=== PATIENT | female | born 1955 | race Caucasian/White ===

== ENCOUNTER 2016-11-11 04:54 | Inpatient (IN) ==
[2016-11-11] MEDS ORDERED: methylPREDNISolone 125 MG/2 ML VIAL IVP ONE (04:56)
[2016-11-11] MEDS ORDERED: Ipratropium/Albuterol Neb 3 ML IH ONE ×3 (04:57→11:52)
[2016-11-11] MEDS ORDERED: Albuterol 2.5 MG/3 ML NEBULIZER IH ONE (06:00)
--- NOTE | 2016-11-11 06:29 | Emergency Department Note ---
Disposition Clinical Impression: Acute exacerbation of chronic obstructive airways disease, Hypoxia, Shortness of breath Disposition: Still a Patient Condition: Fair Referrals: NO,PCP [Non-Partnered Physician] - Forms: ED Satisfaction Letter Time of Disposition: 06:41 SOB HPI - General Chief Complaint: ED Shortness of Breath/Dyspnea Stated Complaint: KRISHNA Source: patient Limitations: no limitations Nursing Notes Reviewed: Yes Vital Signs Reviewed: Yes - History of Present Illness Patient presents emergency room from home today for evaluation of shortness of breath. Symptoms progressively getting worse over the last 2-3 days. She has known COPD and emphysema. She is trying to use her home inhalers and oxygen. She has not had any control over symptoms that time. She presents here today by EMS significantly dyspneic and has audible wheezing. She is denying chest pain she just has uncontrolled shortness of breath and is asking for our help. Pt Subjective Complaint: shortness of breath Onset (ago): day(s) (3 days) Context: smoke/fume exposure Severity: moderate Consistency/Duration: gradually worsening Improves with: nothing Worsens with: lying flat, exertion, inspiration Associated symptoms: Reports: cough, wheezing, sputum production, orthopnea ( she will sleep) Treatment prior to arrival: oxygen, bronchodilator - Related Data Home oxygen amount: 2 liters Home Medications Medication Instructions Recorded Confirmed Acetylcysteine [Nac] 500 mg PO DAILY 10/23/16 10/23/16 Albuterol Sulfate [Albuterol 2 puff IH Q4H PRN 10/23/16 10/23/16 Inhaler] Aspirin [Lo-Dose Aspirin EC] 81 mg PO DAILY 10/23/16 10/23/16 Cholecalciferol (Vitamin D3) 1,000 unit PO DAILY 10/23/16 10/23/16 [Vitamin D3] Citalopram Hydrobromide [Celexa] 20 mg PO DAILY 10/23/16 10/23/16 CloNIDine HCl [Kapvay] 0.1 mg PO Q12H PRN 10/23/16 10/23/16 Doxazosin [Cardura] 4 mg PO HS 10/23/16 10/23/16 Fluticasone/Salmeterol [Advair 1 puff IH DAILY 10/23/16 10/23/16 250-50 Diskus] Hydrochlorothiazide 25 mg PO DAILY 10/23/16 10/23/16 Ipratropium/Albuterol Neb [Duoneb] 3 ml IH Q4HR PRN 10/23/16 10/23/16 Labetalol HCl 200 mg PO BID 10/23/16 10/23/16 Potassium Chloride [Klor-Con 10 meq PO DAILY 10/23/16 10/23/16 Sprinkle] Previous Rx's Medication Instructions Recorded Acetaminophen [Tylenol] 1,000 mg PO Q6HR PRN #90 tablet 10/23/16 Allergies Allergy/AdvReac Type Severity Reaction Status Date / Time sulfamethoxazole AdvReac Nausea Verified 10/05/15 11:08 [From Bactrim] trimethoprim [From Bactrim] AdvReac Nausea Verified 10/05/15 11:08 All systems ED: reviewed and negative except as stated. Constitutional: Denies: fever, chills Cardiovascular: Reports: dyspnea on exertion, orthopnea. Denies: chest pain, palpitations, edema Respiratory: Reports: cough, dyspnea, wheezes Gastrointestinal: Denies: nausea, vomiting, diarrhea Genitourinary: Denies: dysuria, frequency Musculoskeletal: Denies: back pain, neck pain Integumentary: Denies: rash Neurological: Denies: headache Past Medical History - Past Medical History Attestation: Yes The following information was validated with the patient. Source: patient Medical history: Reports: COPD, GERD, hyperlipidemia, hypertension Surgical history: Reports: appendectomy, cholecystectomy Psychiatric history: Reports: no psych history CHIEF RESOURCE OFFICER history: Reports: no CHIEF RESOURCE OFFICER history - Social History Smoking Status: Current every day smoker Smokeless Tobacco Status: No Alcohol use: Reports: unknown Drug use: Reports: none Physical Exam - General Limitations: no limitations General appearance: alert - Neck Neck exam: Present: normal inspection, full ROM, trachea midline. Absent: tenderness, meningismus, lymphadenopathy - Chest Chest inspection: Present: normal inspection, symmetric chest wall rise. Absent : tenderness - Respiratory Respiratory exam: Present: respiratory distress, wheezes, accessory muscle use. Absent: stridor - Cardiovascular Cardiovascular exam: Present: normal rhythm, tachycardia, normal heart sounds - Abdominal Exam Abdominal exam: Present: soft, Non-Tender, normal bowel sounds. Absent: tenderness, distention, guarding, rebound, rigidity, Campos's sign, Rovsing's sign, tenderness at McBurney's Point - Extremities Exam Extremities exam: Present: normal inspection, full ROM. Absent: tenderness - Back Exam Back exam: Present: normal inspection, full ROM. Absent: tenderness - Neurological Exam Neurological exam: Present: alert, oriented X3, CN II-XII intact, normal gait - Psychiatric Psychiatric exam: Present: normal affect, normal mood - Skin Skin exam: Present: warm, dry, intact, normal color Course Course Narrative: patient seen and examined the time of arrival. See history of present illness vital signs reviewed on presentation patient is afebrile but significantly tachycardic to Hypoxic. She presented by EMS today for evaluation of shortness of breath and COPD exacerbation. She has felt this coming on over several days at home. She has not had any cough or congestion but she does feel generally ill. Head is atraumatic pupils are reactive to light. Trachea is midline. No stridor. Lungs have diffuse wheezing and significant increased work of breathing and excessive muscle use. Heart is tachycardic but regular. Abdomen is soft no pulsatile mass. Patient moves her extremities but she is generally weak on presentation. Patient is concerning for possible respiratory decompensation secondary to her work of breathing and the prolonged time frame that she has been doing this. Patient was immediately placed on BiPAP and had 3 duo nebs ordered. Basic EKG chest x-ray labs including blood cultures influenza swab and troponin were ordered at this point. Patient has had first dose of IV steroids given. Patient is very concerning for decompensation in the emergency room. We will be watching her closely to see how her symptoms control. Her heart rate was 140 on presentation. We will continue to monitor until disposition is determined. Patient will most likely require admission to the hospital for definitive management - Reevaluation(s) Reevaluation #1: Patient is doing well now with her breathing. Symptoms are getting better. She is still to Her pulse ox is stable at this time. Patient is going to be provided with another 3 albuterol nebulizer treatments. Chest x-ray is still pending. Labs are still pending. IV access is been obtained. Steroids to be given. Patient will have admission passes completed. She will be signed out to the daytime physicians Dr. RUTLEDGE. They will complete the patient's medical evaluation and treatment course. Admission passes completed by then. To the patient's presentation symptoms medical intervention were discussed prior to the signout Pat Time: 07:00 Vital Signs Temperature 98.6 F 02/13/17 04:58 Pulse Rate 139 11/11/16 04:58 Respiratory Rate 30 11/11/16 04:58 Blood Pressure 114/96 11/11/16 04:58 O2 Sat by Pulse Oximetry 98 11/11/16 04:58 Temperature 98.6 F 11/11/16 04:58 Pulse Rate 139 11/11/16 04:58 Respiratory Rate 30 11/11/16 06:10 Blood Pressure 191/141 11/11/16 06:10 O2 Sat by Pulse Oximetry 96 11/11/16 06:10 Oxygen Delivery Oxygen Delivery Aerosol Mask Shortness of Breath/Dyspnea - MDM Narrative Medical decision making narrative: COPD, shortness of breath, hypoxia - Medical Records Medical records reviewed: Yes I reviewed the patient's medical records. - Lab Data Result diagrams: 11/11/16 06:24 11/11/16 06:25 - EKG Data EKG attestation: Yes I reviewed and interpreted this EKG. EKG shows normal: Reports: sinus rhythm, axis, intervals, QRS complexes, ST-T waves Rate: Reports: tachycardia Rhythm: Reports: NSR Standish/QRS: Reports: normal Interpretation: Reports: other (Tachycardic but otherwise morphology appears to be stable) Attestation Statement - Attestation Attestation: For this encounter, I have reviewed the resident, MEDIA PRODUCER, or PA documentation, treatment plan, and medical decision making; and I have had face to face time with this patient. 60-year-old female brought in by EMS with respiratory distress. Patient was unable to provide an adequate history due to her respiratory distress. Patient states that her breathing has significantly worsened over the past 2-3 days. This feels similar to her previous COPD exacerbations however this is much worse. Patient denies recent fevers. Patient states she is nauseated and has vomited at home. Patient denies diarrhea, abdominal pain. On initial physical exam the patient has significant wheezing in the bilateral posterior lung tang. She is extremely diaphoretic and has a heart rate of 140. Patient was given DuoNeb 3 and placed on BiPAP after initial evaluation. Patient started to improve after breathing treatments and BiPAP. She was given Solu-Medrol emergency department. Labs are pending at the time of the end of shift. The patient's care will be transferred to Dr. Rutledge pending laboratory evaluation and disposition.
[2016-11-11 06:32] LABS: Basophils # 0.1 K/mcL (0.0-0.2); Basophils % 0.5 %; Eosinophils % 0.1 %; Hemoglobin 15.2 g/dL (11.5-15.4); Immature Granulocytes % 0.8 % (0-4); Lymphocytes # 0.8 K/mcL (0.6-4.6); Lymphocytes % 7.5 %; Mean Corpuscular Hemoglobin 30.1 pg (28.0-33.3); Mean Corpuscular Volume 91.1 fL (83.0-100.0); Mean Platelet Volume 9.5 fL (9.4-12.4); Monocytes # 0.6 K/mcL (0.0-1.3); Monocytes % 5.6 %; Neutrophils # 9.3 K/mcL (1.6-8.9); Platelet Count 262 K/mcL (140-400); Red Blood Count 5.05 M/mcL (3.82-4.97); Red Cell Distribution Width 12.3 % (11.5-14.5); Segmented Neutrophils % 85.5 %
[2016-11-11 06:46] LABS: BUN/Creatinine Ratio 16 (6-26); Blood Urea Nitrogen 18 mg/dL (7-20); Calcium 10.7 mg/dL (8.6-10.8); Carbon Dioxide 24 mEq/L (19-29); Chloride 102 mEq/L (98-109); Glucose 155 mg/dL (70-99); Osmolality,Calculated 291 (280-300); Potassium 4.6 mEq/L (3.5-4.5); Sodium 138 mEq/L (136-145); eGFR For African Americans > 60 (> 60); eGFR For Non-African Americans 50 (> 60)
[2016-11-11] MEDS ORDERED: Aspirin 81 MG TAB.CHEW PO ONE (07:11)
[2016-11-11] MEDS ORDERED: 0.9 % Sodium Chloride 500 ML IV ONE (07:36)
--- NOTE | 2016-11-11 07:54 | Emergency Department Note ---
Disposition Clinical Impression: Acute exacerbation of chronic obstructive airways disease, Hypoxia, Shortness of breath, Elevated troponin Disposition: Admitted As Inpatient Condition: Fair Referrals: NO,PCP [Non-Partnered Physician] - Forms: ED Satisfaction Letter General Adult HPI - General Chief complaint: ED Shortness of Breath/Dyspnea Stated complaint: KRISHNA Source: patient Limitations: no limitations - History of Present Illness Pain Scale: 0 - Related Data Home Medications Medication Instructions Recorded Confirmed Acetylcysteine [Nac] 500 mg PO DAILY 10/23/16 10/23/16 Albuterol Sulfate [Albuterol 2 puff IH Q4H PRN 10/23/16 10/23/16 Inhaler] Aspirin [Lo-Dose Aspirin EC] 81 mg PO DAILY 10/23/16 10/23/16 Cholecalciferol (Vitamin D3) 1,000 unit PO DAILY 10/23/16 10/23/16 [Vitamin D3] Citalopram Hydrobromide [Celexa] 20 mg PO DAILY 10/23/16 10/23/16 CloNIDine HCl [Kapvay] 0.1 mg PO Q12H PRN 10/23/16 10/23/16 Doxazosin [Cardura] 4 mg PO HS 10/23/16 10/23/16 Fluticasone/Salmeterol [Advair 1 puff IH DAILY 10/23/16 10/23/16 250-50 Diskus] Hydrochlorothiazide 25 mg PO DAILY 10/23/16 10/23/16 Ipratropium/Albuterol Neb [Duoneb] 3 ml IH Q4HR PRN 10/23/16 10/23/16 Labetalol HCl 200 mg PO BID 10/23/16 10/23/16 Potassium Chloride [Klor-Con 10 meq PO DAILY 10/23/16 10/23/16 Sprinkle] Previous Rx's Medication Instructions Recorded Acetaminophen [Tylenol] 1,000 mg PO Q6HR PRN #90 tablet 10/23/16 Allergies Allergy/AdvReac Type Severity Reaction Status Date / Time sulfamethoxazole AdvReac Nausea Verified 10/05/15 11:08 [From Bactrim] trimethoprim [From Bactrim] AdvReac Nausea Verified 10/05/15 11:08 Constitutional: Denies: fever, chills Cardiovascular: Reports: dyspnea on exertion, orthopnea. Denies: chest pain, palpitations, edema Respiratory: Reports: cough, dyspnea, wheezes Gastrointestinal: Denies: nausea, vomiting, diarrhea Genitourinary: Denies: dysuria, frequency Musculoskeletal: Denies: back pain, neck pain Integumentary: Denies: rash Neurological: Denies: headache Past Medical History - Past Medical History Medical history: Reports: COPD, GERD, hyperlipidemia, hypertension Surgical history: Reports: appendectomy, cholecystectomy Psychiatric history: Reports: no psych history INFORMATION SYSTEMS CONSULTANT history: Reports: no INFORMATION SYSTEMS CONSULTANT history - Social History Smoking Status: Current every day smoker Smokeless Tobacco Status: No Alcohol use: Reports: unknown Drug use: Reports: none Physical Exam - General Limitations: no limitations General appearance: alert Course - Reevaluation(s) Reevaluation #1: Patient taken over from the night team. Patient presents with diffuse wheezing and history of COPD with intermittent home oxygen use. Patient has history of peripheral artery disease and recently underwent cardiac stress test on November 05 in order for preop clearance for left leg angioplasty, which was negative for ischemia or infarct. Patient does have an elevated troponin of 0.9 and has been given aspirin. Will discuss with hospitalist about need for anticoagulation. Patient currently with heart rate of 113, blood pressure 159/100, pulse ox 98% on FiO2 of 40, patient was taken off her BiPAP in order to further discuss history and does continue to speak with pursed lips in short sentences. Patient placed back on BiPAP. Reevaluation #2: Repeat EKG, ABG and troponin drawn at hospitalist request. - Consultations Consultation #1: Discussed with hospitalist. Pt accepted. Dr. Malloy will evaluate at bedside. Vital Signs Temperature 98.6 F 11/11/16 04:58 Pulse Rate 139 11/11/16 04:58 Respiratory Rate 30 11/11/16 04:58 Blood Pressure 114/96 11/11/16 04:58 O2 Sat by Pulse Oximetry 98 11/11/16 04:58 Temperature 98.6 F 11/11/16 04:58 Pulse Rate 124 11/11/16 07:30 Respiratory Rate 22 11/11/16 07:30 Blood Pressure 195/119 11/11/16 07:30 O2 Sat by Pulse Oximetry 95 11/11/16 07:30 Oxygen Delivery Oxygen Delivery Aerosol Mask Medical Decision Making - Medical Records Medical records reviewed: Yes I reviewed the patient's medical records. - Lab Data Lab results reviewed: Yes I reviewed the patient's lab results. Result diagrams: 11/11/16 06:24 11/11/16 06:25 Lab Results 11/11/16 11/11/16 11/11/16 Range/Units 06:00 06:24 06:24 WBC 10.9 (4.3-11.1) K/mcL RBC 5.05 H (3.82-4.97) M/mcL Hgb 15.2 (11.5-15.4) g/dL Hct 46.0 H (35.3-44.9) % MCV 91.1 (83.0-100.0) fL MCH 30.1 (28.0-33.3) pg MCHC 33.0 (31.6-35.5) g/dL RDW 12.3 (11.5-14.5) % Plt Count 262 (140-400) K/mcL MPV 9.5 (9.4-12.4) fL Immature Gran % 0.8 (0-4) % Seg Neutrophils % 85.5 % Lymphocytes % 7.5 % Monocytes % 5.6 % Eosinophils % 0.1 % Basophils % 0.5 % Neutrophils # 9.3 H (1.6-8.9) K/mcL Lymphocytes # 0.8 (0.6-4.6) K/mcL Monocytes # 0.6 (0.0-1.3) K/mcL Eosinophils # 0.0 (0.0-0.6) K/mcL Basophils # 0.1 (0.0-0.2) K/mcL Sodium (136-145) mEq/L Potassium (3.5-4.5) mEq/L Chloride (98-109) mEq/L Carbon Dioxide (19-29) mEq/L BUN (7-20) mg/dL Creatinine (0.57-1.11) mg/dL Est GFR ( Amer) (> 60) Est GFR (Non-Af Amer) (> 60) BUN/Creatinine Ratio (6-26) Glucose (70-99) mg/dL Calculated Osmolality (280-300) Calcium (8.6-10.8) mg/dL Troponin I 0.91 H* (0-0.03) ng/mL B-Natriuretic Peptide (0-100) pg/mL Specimen Rejected Clotted 11/11/16 11/11/16 Range/Units 06:24 06:25 WBC (4.3-11.1) K/mcL RBC (3.82-4.97) M/mcL Hgb (11.5-15.4) g/dL Hct (35.3-44.9) % MCV (83.0-100.0) fL MCH (28.0-33.3) pg MCHC (31.6-35.5) g/dL RDW (11.5-14.5) % Plt Count (140-400) K/mcL MPV (9.4-12.4) fL Immature Gran % (0-4) % Seg Neutrophils % % Lymphocytes % % Monocytes % % Eosinophils % % Basophils % % Neutrophils # (1.6-8.9) K/mcL Lymphocytes # (0.6-4.6) K/mcL Monocytes # (0.0-1.3) K/mcL Eosinophils # (0.0-0.6) K/mcL Basophils # (0.0-0.2) K/mcL Sodium 138 (136-145) mEq/L Potassium 4.6 H (3.5-4.5) mEq/L Chloride 102 (98-109) mEq/L Carbon Dioxide 24 (19-29) mEq/L BUN 18 (7-20) mg/dL Creatinine 1.11 (0.57-1.11) mg/dL Est GFR ( Amer) > 60 (> 60) Est GFR (Non-Af Amer) 50 L (> 60) BUN/Creatinine Ratio 16 (6-26) Glucose 155 H (70-99) mg/dL Calculated Osmolality 291 (280-300) Calcium 10.7 (8.6-10.8) mg/dL Troponin I (0-0.03) ng/mL B-Natriuretic Peptide 459 H (0-100) pg/mL Specimen Rejected - Radiology Data Radiology results reviewed: Yes I reviewed the patient's radiology results. - EKG Data EKG #2 EKG attestation: Yes I reviewed and interpreted this EKG. EKG results narrative: Repeat EKG shows sinus tachycardia with ventricular rate of 110 bpm. CA 148. QRS 75. QTC 380. Patient has no significant ST elevations or depressions. No significant changes from previous EKG approximately 3 hours prior.
[2016-11-11] MEDS ORDERED: *HR* Heparin 5,000 UNIT/ML VIAL IVP PRN (08:33)
[2016-11-11] MEDS ORDERED: *HR* Heparin 5,000 UNIT/ML VIAL IVP ONE (08:33)
[2016-11-11 08:36] LABS: ABG Base Excess -0.2 mEq/L (-2.0 to 3.0); ABG HCO3 26.4 mEQ/L (21-27); ABG Oxygen Saturation 99 % (95-98); ABG PCO2 49 mmHg (35-45); ABG PH 7.34 pH Units (7.32-7.45); ABG PO2 132 mmHg (85-104); ABG TCO2 27.9 mEq/L (20-26)
[2016-11-11 08:38] LABS: Blood Gas FiO2 40 %
[2016-11-11] MEDS: *HR* Metoprolol 5 MG/5 ML VIAL IVP SCH ×3 (09:07→20:21)
[2016-11-11 09:23] LABS: Hematocrit 46.2 % (35.3-44.9); Hemoglobin 15.3 g/dL (11.5-15.4); Mean Corpuscular HGB Conc 33.1 g/dL (31.6-35.5); Mean Corpuscular Hemoglobin 30.4 pg (28.0-33.3); Mean Corpuscular Volume 91.7 fL (83.0-100.0); Mean Platelet Volume 9.6 fL (9.4-12.4); Platelet Count 266 K/mcL (140-400); Red Blood Count 5.04 M/mcL (3.82-4.97); Red Cell Distribution Width 12.4 % (11.5-14.5)
[2016-11-11 09:30] LABS: INR 0.9; Prothrombin Time 10.1 Seconds (9.4-12.1)
[2016-11-11 09:33] LABS: Activated Partial Thrombo Time 28.3 Seconds (26.0-36.0)
--- NOTE | 2016-11-11 10:15 | Internal Med History&Physical ---
Date of Encounter: 11/11/16 Time of Encounter: 10:12 Assessment and Plan (1) Non-ST elevation myocardial infarction (NSTEMI), initial care episode Current visit: Yes Status: Acute I have discussed the case with cardiology. She A she was given aspirin. We will start heparin drip. We will start IV metoprolol. We will keep her nothing by mouth. I have repeated troponin stat and noticed an upper trend.. Currently her troponin is 1.3 from 0.9. Check echocardiogram. The patient has a recent stress test which was negative however it appears that at this time she is developing ACS. We will use oxygen by nasal cannula and morphine as needed for pain. Notably the patient does not report any chest pain at this time and has not had chest pain for the last 3 days however she does complain of diaphoresis and weakness. I have repeated her EKG which just appears stable from her previous EKG done today. I do not see any ST elevations. There are Q waves and nonspecific ST changes. (2) Acute respiratory failure with hypoxia and hypercarbia Current visit: Yes Status: Acute Patient is currently on BiPAP. I have performed an ABG which shows mild heart hypercarbia. She has been hypoxic and in respiratory distress with tachypnea and accessory muscle use however this improved with BiPAP. We will continue with BiPAP with settings of 16/840% FiO2, we will treat her COPD exacerbation and attempt BiPAP breaks for ice chips. The patient is highly unstable and there is high probability of emergent and significant clinical decompensation with potential impairment of organ function including cardiovascular system and respiratory system. I have performed 45 minutes of critical care time which involved decision making of high complexity to assess, manipulate, and support vital organ system, in order to prevent further life threatening deterioration of the patient's condition. The time involved in the performance of any procedures was not counted toward critical care time and will be billed separately. Critical care time was spent evaluating the patient, reviewing EKGs, telemetry tracing, imaging studies and laboratory data, discussing the case with the emergency department physicians, and consultants, ordering medications and reevaluating for clinical response and making adjustments to ordered medications. (3) Tobacco abuse Current visit: Yes Status: Acute I have advised smoking cessation. Will provide nicotine replacement therapy (4) Uncontrolled hypertension Current visit: Yes Status: Acute IV metoprolol. Restart her home meds. I will specifically continue her clonidine while she is nothing by mouth. (5) Depression Current visit: Yes Status: Acute Hold Celexa due to possible intervention with Levaquin. Qualifiers: Depression Type: other depression Qualified Code(s): F32.89 - Other specified depressive episodes (6) Acute exacerbation of chronic obstructive airways disease Current visit: Yes Status: Acute IV Solu-Medrol. Inhaled albuterol and ipratropium. Continue with BiPAP. IV Levaquin as indicated by increased sputum production and need for noninvasive positive pressure ventilation. Internal Medicine - H&P: HPI Chief complaint: Respiratory distress Plans for Post Hospital Care: Home History of present illness: Ms. Crawford is a 60 year old female with past medical history significant for COPD who was brought by ambulance for evaluation of respiratory distress. The history is limited by severe shortness of breath currently the patient is on BiPAP. She relates that for the last 3 days she had worsening shortness of breath not associated with chest pain. She reports associated cough productive of yellow sputum and subjective fevers. The course has been progressively worsening in her shortness of breath but not significantly improved with use of nebulized albuterol. Upon initial evaluation in the emergency department she was found to be in respiratory distress and she was placed on BiPAP. She was given inhaled bronchodilators and Solu-Medrol. Review of systems Limited respiratory distress. A limited 10 point review of systems was performed and was positive for leg claudication, chronic shortness of breath improved with the use of home oxygen, nausea and diaphoresis, otherwise negative Family history was positive for premature coronary artery disease in the patient 's father, otherwise noncontributory. Past Med Surg Social Fam HX - Past Medical History Medical history: COPD, GERD, hyperlipidemia, hypertension Psychiatric history: no psych history - Past Surgical History Surgical History: appendectomy, cholecystectomy - Social History Smoking Status: Current every day smoker Smokeless Tobacco Status: No Alcohol use: unknown Drug use: none - Family History Father Adopted: No Family Member Ethnicity: Non- Living Status: Hx Family Cardiac Disorders: Yes Hx Family Respiratory Disorders: No Hx Family Cancer: No Hx Family GI Disorders: No Hx Family Endocrine Disorder: No Hx Family Neuromuscular Disorders: No Hx Family Neurologic Disorders: Yes (gopila cva's) Hx Family HEENT Disorders: No Hx Family Autoimmune Disorders: No Internal Medicine - H&P: Meds Acetaminophen [Tylenol] 1,000 mg PO Q6HR PRN #90 tablet 10/23/16 [Rx] Acetylcysteine [Nac] 500 mg PO DAILY 10/23/16 [History] Albuterol Sulfate [Albuterol Inhaler] 2 puff IH Q4H PRN 10/23/16 [History] Aspirin [Lo-Dose Aspirin EC] 81 mg PO DAILY 10/23/16 [History] Cholecalciferol (Vitamin D3) [Vitamin D3] 1,000 unit PO DAILY 10/23/16 [History] Citalopram Hydrobromide [Celexa] 20 mg PO DAILY 10/23/16 [History] CloNIDine HCl [Kapvay] 0.1 mg PO Q12H PRN 10/23/16 [History] Doxazosin [Cardura] 4 mg PO HS 10/23/16 [History] Fluticasone/Salmeterol [Advair 250-50 Diskus] 1 puff IH DAILY 10/23/16 [History] Hydrochlorothiazide 25 mg PO DAILY 10/23/16 [History] Ipratropium/Albuterol Neb [Duoneb] 3 ml IH Q4HR PRN 10/23/16 [History] Labetalol HCl 200 mg PO BID 10/23/16 [History] Potassium Chloride [Klor-Con Sprinkle] 10 meq PO DAILY 10/23/16 [History] Allergies sulfamethoxazole [From Bactrim] Adverse Reaction (Verified 10/05/15 11:08) Nausea trimethoprim [From Bactrim] Adverse Reaction (Verified 10/05/15 11:08) Nausea All Systems PM: A 10-system review of systems was performed and is negative for pertinent findings except as documented above in the HPI. - Constitutional Vitals: Temp Pulse Resp BP Pulse Ox 98.6 F 87 16 135/103 100 11/11/16 04:58 11/11/16 09:44 11/11/16 09:44 11/11/16 09:44 11/11/16 09:44 General appearance: Present: A&O X 3 Exam: She is in moderate to severe distress due to respiratory insufficiency. - Head Head exam: Present: atraumatic, normocephalic - Eye Eye exam: Present: PERRL, conjuntiva pink, sclera anicteric Pupils: Present: PERRL - Neck Neck exam general surgery: Present: supple, trachea midline. Absent: lymphadenopathy - Respiratory Respiratory exam: Present: wheezes, tachypnea. Absent: accessory muscle use, rales, rhonchi Additional comments: Bilateral expiratory wheezes - Cardiovascular Cardiovascular exam: Present: +S1, +S2, tachycardia. Absent: diastolic murmur, gallop, rubs, systolic murmur - GI/Abdominal GI/Abdominal exam: Present: normal bowel sounds, soft, no peritoneal signs. Absent: distended, tenderness - Extremities Exam Extremities exam: Present: warm, radial pulses palpable and symetrical. Absent : calf tenderness, cyanotic, pedal edema - Neurological Exam Neurological exam: Present: CN II-XII intact, oriented X3, no focal deficits. Absent: pronater drift, facial droop, speech deficit - Skin Skin exam: Present: dry, intact Internal Med - H&P Results - Labs CBC & Chem 7: 11/11/16 09:08 11/11/16 06:25 Labs: Short CBC 11/11/16 Range/Units 09:08 WBC 11.3 H (4.3-11.1) K/mcL Hgb 15.3 (11.5-15.4) g/dL Hct 46.2 H (35.3-44.9) % Plt Count 266 (140-400) K/mcL - EKG Data EKG comments: 11/11/16 10:18 My review of the EKG: Sinus tachycardia 1 37 bpm normal intervals Q waves in V1 to V3 indicative of possible old versus subacute MD. ST depressions in V4 and V6. - Impressions Chest x-ray per my review shows normal heart size, clear lung tang no infiltrate effusion or vascular congestion.
[2016-11-11] MEDS ORDERED: Naloxone 0.4 MG/ML INJ IVP PRN (10:33)
[2016-11-11] MEDS ORDERED: *HR* Morphine 2 MG/ML SYRINGE IVP PRN (10:33)
[2016-11-11] MEDS ORDERED: Acetaminophen 325 MG TABLET PO PRN (10:33)
[2016-11-11] MEDS: Aspirin Enteric Coated 81 MG Tablet PO SCH (10:39)
[2016-11-11] MEDS: Heparin 25,000 UNIT/500 ML D5W 25,000 UNIT/500 ML MLS IVC SCH (10:40)
[2016-11-11] MEDS: Levofloxacin 750 MG/150 ML 750 MG/150 ML BAG IVPB SCH (10:41)
--- NOTE | 2016-11-11 11:22 | Cardiology Consult Note ---
<Buddy Rosenthal - Last Filed: 11/11/16 11:19> Date of Encounter: 11/11/16 Time of Encounter: 11:19 Assessment and Plan (1) Non-ST elevation myocardial infarction (NSTEMI), initial care episode Current Visit: Yes Status: Acute Troponin 0.91, 1.30 in setting of acute on chronic respiratory failure-- currently on BiPAP. NSTEMI vs. demand ischemia, but troponin elevation is out of proportion to what would be expected for demand ischemia. She describes pleuritic chest pain in recent days. Multiple risk factors for CAD--HTN, HLD, tobacco abuse, family history, PVD. Negative stress test 11/05/16. Given her troponin elevation and risk factors, recommend LHC during hospital stay once stable from a respiratory standpoint, as pt is on BiPAP and still on distress. Continue heparin gtt and ASA. Start Statin. Will not start BB given respiratory status. Check echo. Continue to follow. (2) Acute respiratory failure with hypoxia and hypercarbia Current Visit: Yes Status: Acute Patient is currently on BiPAP. Management per primary team. (3) Tobacco abuse Current Visit: Yes Status: Acute Smoking cessation counseling given. (4) Uncontrolled hypertension Current Visit: Yes Status: Acute Hospitalist has made adjustments. Continue to monitor and adjust as necessary. Discussion w patient/family: The assessment and plan as outlined above was discussed with the patient and/or family members who expressed understanding and agreement. All questions were answered. Thank you for involving us in the care of your patient. Please call with any questions. I will discuss all the above with Dr. Alexandra and make changes as necessary. History of Present Illness Consult date: 11/11/16 Requesting physician: Mahamed Richard Consult reason: NSTEMI Chief complaint: dyspnea History of present illness: Ms. Crawford is a 60 year old female with a history of hypertension, hyperlipidemia , COPD and tobacco abuse. She has a longstanding history of peripheral vascular disease with claudication. She has undergone multiple vascular procedures in the past for peripheral vascular disease and an abdominal aortic aneurysm. She also has a right renal artery stent for renal artery stenosis. Pt is currently in respiratory distress on BiPAP, so the information I was able to obtain was limited. She developed worsening shortness of breath 2-3 days ago. She does admit to chest pain under left breast that was worse with cough/inspiration. No prior LHC. Had a negative stress test 11/05/16 for pre-op for vascular procedure. Troponins 0.91, 1.30. Heparin gtt already started. Past Med Surg Social Fam HX - Past Medical History Medical history: COPD, GERD, hyperlipidemia, hypertension, peripheral artery disease Psychiatric history: no psych history - Past Surgical History Surgical History: appendectomy, cholecystectomy - Social History Smoking Status: Current every day smoker Smokeless Tobacco Status: No Alcohol use: unknown Drug use: none - Family History Father Adopted: No Family Member Ethnicity: Non- Living Status: Hx Family Cardiac Disorders: Yes Hx Family Respiratory Disorders: No Hx Family Cancer: No Hx Family GI Disorders: No Hx Family Endocrine Disorder: No Hx Family Neuromuscular Disorders: No Hx Family Neurologic Disorders: Yes ([facility]) Hx Family HEENT Disorders: No Hx Family Autoimmune Disorders: No Medications and Allergies Acetaminophen [Tylenol] 1,000 mg PO Q6HR PRN #90 tablet 10/23/16 [Rx] Acetylcysteine [Nac] 500 mg PO DAILY 10/23/16 [History] Albuterol Sulfate [Albuterol Inhaler] 2 puff IH Q4H PRN 10/23/16 [History] Aspirin [Lo-Dose Aspirin EC] 81 mg PO DAILY 10/23/16 [History] Cholecalciferol (Vitamin D3) [Vitamin D3] 1,000 unit PO DAILY 10/23/16 [History] Citalopram Hydrobromide [Celexa] 20 mg PO DAILY 10/23/16 [History] CloNIDine HCl [Kapvay] 0.1 mg PO Q12H PRN 10/23/16 [History] Doxazosin [Cardura] 4 mg PO HS 10/23/16 [History] Fluticasone/Salmeterol [Advair 250-50 Diskus] 1 puff IH DAILY 10/23/16 [History] Hydrochlorothiazide 25 mg PO DAILY 10/23/16 [History] Ipratropium/Albuterol Neb [Duoneb] 3 ml IH Q4HR PRN 10/23/16 [History] Labetalol HCl 200 mg PO BID 10/23/16 [History] Potassium Chloride [Klor-Con Sprinkle] 10 meq PO DAILY 10/23/16 [History] Allergies sulfamethoxazole [From Bactrim] Adverse Reaction (Verified 11/11/16 12:24) Nausea trimethoprim [From Bactrim] Adverse Reaction (Verified 11/11/16 12:24) Nausea All Systems Review: A 10-system review of systems was performed and is negative for pertinent findings except as documented above in the HPI. - Cardiovascular Cardiovascular: as per HPI, chest pain at rest, dyspnea at rest, dyspnea on exertion - Respiratory Respiratory: dyspnea, wheezing Physical Examination Vital Signs, Last 4 Hours Pulse Resp BP Pulse Ox 11/11/16 09:44 87 16 135/103 100 Vital Signs Temp Pulse Resp BP Pulse Ox 11/11/16 09:44 87 16 135/103 100 11/11/16 08:41 15 168/108 97 11/11/16 08:25 109 14 176/118 94 L 11/11/16 07:30 124 22 195/119 95 11/11/16 06:10 30 191/141 96 11/11/16 05:05 31 114/96 98 11/11/16 04:58 98.6 F 139 30 114/96 98 Intake and Output 11/10/16 11/11/16 11/11/16 23:59 07:59 15:59 Other: Weight 58.967 kg Patient Weight 11/11/16 23:59 Weight 58.967 kg General: Other (respiratory distress, on BiPAP) HEENT: Atraumatic, Normocephaly, Mucus Membranes Moist Neck: No JVD, Normal carotid pulses Cardiac: Reg Rate and Rhythm, Normal S1 and S2, No Murmur Lungs: Other (significant wheezes, rhonchi) Neuro: Alert and responsive, No focal deficits noted Abdomen: Soft, Non-Tender Skin: No rashes noted on visualized skin Musculoskeletal: No Chest Wall Tenderness Extremities: No Clubbing, No Cyanosis, No Edema, Normal Pulses Results 11/11/16 09:08 11/11/16 06:25 Lab Results 11/11/16 11/11/16 09:08 09:08 WBC 11.3 H Hgb 15.3 Hct 46.2 H Plt Count 266 INR 0.9 APTT 28.3 Short CBC 11/11/16 11/11/16 Range/Units 09:08 06:24 WBC 11.3 H 10.9 (4.3-11.1) K/mcL Hgb 15.3 15.2 (11.5-15.4) g/dL Hct 46.2 H 46.0 H (35.3-44.9) % Plt Count 266 262 (140-400) K/mcL Neutrophils # 9.3 H (1.6-8.9) K/mcL BMP 11/11/16 Range/Units 06:25 Sodium 138 (136-145) mEq/L Potassium 4.6 H (3.5-4.5) mEq/L Chloride 102 (98-109) mEq/L Carbon Dioxide 24 (19-29) mEq/L BUN 18 (7-20) mg/dL Creatinine 1.11 (0.57-1.11) mg/dL Glucose 155 H (70-99) mg/dL Calcium 10.7 (8.6-10.8) mg/dL Cardiac Enzymes 11/11/16 11/11/16 Range/Units 08:26 06:24 Troponin I 1.30 H* 0.91 H* (0-0.03) ng/mL Impressions Chest X-Ray 11/11/16 04:56 IMPRESSION: No evidence of acute disease. D/ / Zelalem Caicedo MD / Zelalem Caicedo MD Interpreting Provider: Zelalem Caicedo MD Active Medications Acetaminophen (Tylenol) 650 mg PO Q6HR PRN PRN Reason: Mild Pain (1-3) Stop: 05/13/17 10:34 Albuterol/Ipratropium (Duoneb) 3 ml IH [id number] SANKET PRN Reason: Protocol Stop: 05/13/17 12:01 Aspirin (Aspirin Ec) 81 mg PO DAILY [facility] Stop: 05/13/17 09:01 Last Admin: 11/11/16 10:39 Dose: 81 mg Budesonide/Formoterol Fumarate (Symbicort) 2 puff IH BIDR [facility] Stop: 05/13/17 10:01 Clonidine HCl (Clonidine Hcl) 0.1 mg PO Q12H PRN PRN Reason: Hypertension Doxazosin Mesylate (Cardura) 4 mg PO HS [facility] Stop: 05/13/17 21:01 Heparin Sodium (Porcine) (Heparin) 3,500 unit 60 unit/kg (3500 unit) IVP Q6HR PRN PRN Reason: SEE COMMENTS Stop: 05/13/17 08:34 Heparin Sodium (Porcine) (Heparin) 1,800 unit 30 unit/kg (1800 unit) IVP Q6H PRN PRN Reason: SEE COMMENTS Stop: 05/13/17 08:34 Heparin Sodium/Dextrose (Heparin 25,000 Unit/500 Ml D5w) 25,000 unit in 500 mls @ 14.152 mls/hr IVC .Q24H SANKET; 12 UNIT/KG/HR PRN Reason: Protocol Stop: 05/13/17 08:46 Last Admin: 11/11/16 10:40 Dose: 12 unit/kg/hr, 14.152 mls/hr Levofloxacin/Dextrose (Levaquin 750mg/150 Ml) 750 mg in 150 mls @ 100 mls/hr IVPB Q48H SANKET PRN Reason: Protocol Stop: 05/13/17 09:01 Last Admin: 11/11/16 10:41 Dose: 100 mls/hr Methylprednisolone (Solu-Medrol) 80 mg IVP Q6HR SANKET Stop: 05/13/17 12:01 Metoprolol Tartrate (Lopressor) 5 mg IVP Q6HR SANKET Stop: 11/11/16 18:01 Last Admin: 11/11/16 09:07 Dose: 5 mg Morphine Sulfate (Morphine Sulfate) 2 mg IVP Q4HR PRN PRN Reason: Severe Pain (7-10) Stop: 05/13/17 10:34 Naloxone HCl (Narcan) 0.4 mg IVP Q2MIN PRN PRN Reason: Opioid Reversal Stop: 05/13/17 10:34 Ondansetron HCl (Zofran) 4 mg IVP Q8HR PRN PRN Reason: Nausea And Vomiting Stop: 05/13/17 10:34 - Imaging and Cardiology Chest Xray: report reviewed Stress Test: report reviewed - EKG Interpretation EKG results cardiology: personally reviewed (Sinus tach, no significant changes) Consult Discharge Plan - Plan Referrals: Simone Nieves MD [Primary Care Provider] - <Kimberly Alexandra - Last Filed: 11/11/16 16:12> Date of Encounter: 11/11/16 Assessment and Plan Discussion w patient/family: The assessment and plan as outlined above was discussed with the patient and/or family members who expressed understanding and agreement. All questions were answered. Thank you for involving us in the care of your patient. Please call with any questions. History of Present Illness History of present illness: Ms. Crawford is a 60 year old female All Systems Review: A 10-system review of systems was performed and is negative for pertinent findings except as documented above in the HPI. Physical Examination Vital Signs, Last 4 Hours Temp Pulse Resp BP Pulse Ox 11/11/16 15:02 100 11/11/16 14:04 97.4 F L 119 28 198/138 93 L 11/11/16 13:20 16 148/102 11/11/16 12:21 22 149/107 100 Results 11/11/16 09:08 11/11/16 06:25 Lab Results 11/11/16 14:21 Troponin I 1.55 H* - Attending Attestation I examined this patient and my medical decision-making was reviewed with the ACTIVATED SLUDGE ATTENDANT/PA/Advanced Practice Nurse/Resident Physician. I agree with the documented findings, disposition and treatment plan. Ms. Crawford presents with a NSTEMI in setting of a COPD exacerbation. We discussed proceeding with a [facility] but patient is unable to lay flat secondary to significant dyspnea. We recommend continuing medical therapy for now, including heparin gtt. She will have an echo performed. We will proceed with C once clinical status allows. Renal function is normal. The R/B/A of the procedure were discussed with the patient who expressed understanding and agreement.
[2016-11-11] MEDS: Budesonide/Formoterol 160/4.5 MDI IH SCH ×2 (12:16→20:24)
[2016-11-11] MEDS: Ipratropium/Albuterol Neb 3 ML IH SCH ×4 (12:17→23:32)
[2016-11-11] MEDS: cloNIDine HCl 0.1 MG TABLET PO PRN (14:11)
[2016-11-11] MEDS: methylPREDNISolone 125 MG/2 ML VIAL IVP SCH ×2 (16:38→20:12)
--- NOTE | 2016-11-11 19:47 | Electrocardiograph Report ---
[address] [place] [address] Test Date: 2016-11-11 Pat Name: Yulissa Crawford Department: 104 Room: 2N07 Gender: F [place] Farmer: : 1955 Requested By: Manny Marie Order Number: [id number] Reading MD: Nito Islas DO Measurements Intervals Alloy Rate: 137 P: 86 FL: 145 QRS: -16 QRSD: 90 T: 86 QT: 300 QTc: 380 Interpretive Statements SINUS TACHYCARDIA SEPTAL MYOCARDIAL INFARCTION, OF INDETERMINATE AGE Electronically Signed On 11-11-2016 19:45:37 EST by Nito Islas DO
--- NOTE | 2016-11-11 20:20 | ECHO - Doppler Report ---
Echocardiogram Name: Yulissa Crawford Date of Study: 11/11/2016 Date: 1955 Ht: 63.0 in Medical Record#: [id number] Age: 60 Wt: 136.0 lb Gender: Female BSA: 1.64 Order #: [id number] Location: [facility] Room #: 2N7 Reading Physician: Nito Islas DO, LUIS, ZAHEER MTAIAS Creative Writer: Chelsey Martin RDCS Ordering Physician: Mahamed Richard MD Primary Physician: Simone Nieves MD Indications: ACS Impressions: LVEF 20-25%. Normal LV chamber size and wall thickness. Grossly, severe global left ventricular systolic dysfunction. Not all LV segments were well visualized. Indeterminate diastolic function. Unable to estimate RVSP due to lack of TR jet. No significant valvular dysfunction. Consider a repeat with Definity once clinical status improved to better evaluate LV segmental wall motion. Dr. Briscoe notified of results (covering hospitalist). Findings: Study Quality * Technically sub-optimal due to clinical status. ECG Findings * Normal sinus rhythm. Left Ventricle * LVEF 20-25%. * Normal LV chamber size and wall thickness. * Grossly, severe global left ventricular systolic dysfunction. Not all LV segments were well visualized. * Indeterminate diastolic function. Right Ventricle * Normal appearing right ventricular structure and function. Left Atrium * Normal left atrial size. Right Atrium * Normal right atrial size. Interatrial Septum * No evidence of PFO by color Doppler. Aortic Valve * Aortic valve not well visualized. * No aortic regurgitation. * No aortic stenosis. Mitral Valve * Normal mitral valve structure and function. * No mitral regurgitation. * No mitral stenosis. Tricuspid Valve * Normal tricuspid valve structure and function. * No tricuspid regurgitation. * Unable to estimate RVSP due to lack of TR jet. Pulmonic Valve * Pulmonic valve not well visualized. Aorta * Normally sized aortic root. Pericardium * The pericardium appears normal. IVC * The IVC is not dilated. * < 50% respiratory change. Pulmonary Artery * Pulmonary artery not well visualized. History Hypertension Hypercholesteremia Family History of CAD Measurements: BP: 154/ 107 2D Normal Values RVIDd: 2.29 cm <2.7 cm IVSd: .73 cm 0.6 - 1.0 cm LVIDd: 4.45 cm 3.7 - 5.6 cm LVPWd: .80 cm 0.6 - 1.1 cm LVIDs: 2.71 cm 1.5 - 3.6 cm AO: 1.90 cm < 4.0 cm LA: 3.00 cm 2.0 - 4.0cm %FS: 39.10 cm >25 % LA volume: 26 Mitral Valve Peak E:.96 m/sec Peak E' Lat Nikos:8.33 cm/s Peak E' Med Nikos:10.8 cm/s E/E' Lat Ratio:11.6 E/E' Med Ratio:8.9 Tricuspid Valve TV Regurg Peak Grad: 5.00mmHg TV Regurg Peak Nikos: 1.11m/sec Updated by Nito Islas DO, FACIsai, POLLY, ZAHEER on 11/11/2016 8:10:53 PM electronically signed on 11/11/2016 8:16:00 PM with status of Final [employer] Andrade: 1=Normal, 2=Hypokinesis, 3=Akinesis, 4=Dyskinesis, 5=Aneurysmal, 6=Hyperkinetic, X=Not Visualized (Blank)=Missing
[2016-11-11 23:09] LABS: Activated Partial Thrombo Time 123.6 Seconds (26.0-36.0)
[2016-11-11 23:14] LABS: Heparin anti-factor XA UFH 0.8 IU/mL (0.30-0.70)
[2016-11-12] MEDS: methylPREDNISolone 125 MG/2 ML VIAL IVP SCH ×5 (00:20→23:24)
[2016-11-12] MEDS: Ipratropium/Albuterol Neb 3 ML IH SCH ×5 (03:41→20:30)
[2016-11-12 04:10] LABS: Basophils % 0.1 %; Hematocrit 41.7 % (35.3-44.9); Hemoglobin 13.7 g/dL (11.5-15.4); Immature Granulocytes % 0.4 % (0-4); Lymphocytes # 0.8 K/mcL (0.6-4.6); Lymphocytes % 6.2 %; Mean Corpuscular HGB Conc 32.9 g/dL (31.6-35.5); Mean Corpuscular Hemoglobin 29.8 pg (28.0-33.3); Mean Corpuscular Volume 90.8 fL (83.0-100.0); Mean Platelet Volume 9.8 fL (9.4-12.4); Monocytes # 0.3 K/mcL (0.0-1.3); Monocytes % 2.2 %; Neutrophils # 11.2 K/mcL (1.6-8.9); Platelet Count 244 K/mcL (140-400); Red Blood Count 4.59 M/mcL (3.82-4.97); Red Cell Distribution Width 12.5 % (11.5-14.5); Segmented Neutrophils % 91.1 %
[2016-11-12 04:26] LABS: BUN/Creatinine Ratio 24 (6-26); Blood Urea Nitrogen 24 mg/dL (7-20); Calcium 10.1 mg/dL (8.6-10.8); Carbon Dioxide 24 mEq/L (19-29); Chloride 101 mEq/L (98-109); Chol/HDL Ratio 4.9 (0-4.9); Cholesterol 221 mg/dL (< 200); Glucose 185 mg/dL (70-99); HDL Cholesterol 45 mg/dL (40-59); LDL Cholesterol,Calculated 146 mg/dL (0-99); Osmolality,Calculated 293 (280-300); Potassium 3.7 mEq/L (3.5-4.5); Sodium 137 mEq/L (136-145); Triglycerides 152 mg/dL (< 150); eGFR For African Americans > 60 (> 60); eGFR For Non-African Americans 57 (> 60)
[2016-11-12] MEDS: *HR* Heparin 5,000 UNIT/ML VIAL IVP PRN ×2 (06:47→20:09)
[2016-11-12 07:03] LABS: Magnesium 1.4 mg/dL (1.6-2.6)
[2016-11-12] MEDS: Budesonide/Formoterol 160/4.5 MDI IH SCH ×2 (07:56→20:30)
[2016-11-12] MEDS: Aspirin Enteric Coated 81 MG Tablet PO SCH (08:04)
[2016-11-12] MEDS: cloNIDine HCl 0.1 MG TABLET PO PRN (08:05)
--- NOTE | 2016-11-12 09:48 | Cardiology Progress Note ---
Date of Encounter: 11/12/16 Time of Encounter: 09:44 Assessment and Plan (1) Acute systolic (congestive) heart failure Current Visit: Yes Status: Acute Echo resulted-- EF 20-25%, grossly, severe global LV systolic dysfunction. No significant valvular disease. Stress test last week showed a preserved gated EF. Will start IV diuresis so see if this helps improve respiratory status. Lasix IV 40mg BID. Recommend Strict I/Os, Na and fluid restriction, daily weights. Recommend LHC while inpt for ischemic evaluation once respiratory status improves. (2) Non-ST elevation myocardial infarction (NSTEMI), initial care episode Current Visit: Yes Status: Acute Peak troponin 1.55--now downtrending, in setting of acute on chronic respiratory failure--currently on BiPAP and acute systolic CHF diagnosis. NSTEMI vs. demand ischemia, but troponin elevation is out of proportion to what would be expected for demand ischemia. Negative stress test 11/05/16 with preserved EF at that time. Echo shows newly decreased EF 20-25%, severe global LV systolic dysfunction. Start MIMA-i. Recommend LHC during hospital stay once stable from a respiratory standpoint, as pt is on BiPAP this AM. Continue heparin gtt and ASA, statin. Will not start BB given respiratory status. (3) Acute respiratory failure with hypoxia and hypercarbia Current Visit: Yes Status: Acute Patient is currently on BiPAP. Management per primary team. Initially thought to be COPD exacerbation, but echo resulted show EF 20-25%. CHF component as well. Will diurese. (4) Tobacco abuse Current Visit: Yes Status: Acute Smoking cessation counseling given. (5) Uncontrolled hypertension Current Visit: Yes Status: Acute Hypertensive this AM. Add MIMA-i for new CHF. Will adjust antihypertensives as necessary. (6) Cardiomyopathy Current Visit: Yes Status: Acute Ischemic vs nonischemic. EF 20-25%, global. Recommend LHC once stable from respiratory standpoint. Will add BB once respiratory status improves. Start MIMA-i. Plan as above. Qualifiers: Cardiomyopathy type: unspecified Qualified Code(s): I42.9 - Cardiomyopathy , unspecified Discussion w patient/family: The assessment and plan as outlined above was discussed with the patient and/or family members who expressed understanding and agreement. All questions were answered. Thank you for involving us in the care of your patient. Please call with any questions. I will discuss all the above with Dr. Alexandra and make changes as necessary. Subjective Principal diagnosis: NSTEMI, COPD exacerbation Interval history: Peak troponin 1.55--now downtrending. Pt on BiPAP this AM. Reports breathing slightly improved from admission. Denies chest pain. Echo resulted--EF 20-25%. Grossly, severe global LV systolic dysfunction. Indeterminate diastolic function. No significant valvular disease. Objective Vital Signs, Last 4 Hours Temp Pulse Resp BP Pulse Ox 11/12/16 07:57 16 99 11/12/16 07:51 97.8 F 79 20 168/104 96 Vital Signs Temp Pulse Resp BP Pulse Ox 11/12/16 07:57 16 99 11/12/16 07:51 97.8 F 79 20 168/104 96 11/12/16 04:47 78 11/12/16 04:46 97 11/12/16 03:56 97.7 F 82 18 143/84 96 11/12/16 03:43 20 97 11/12/16 00:14 97.8 F 84 20 139/91 97 11/11/16 23:45 88 11/11/16 23:33 20 99 11/11/16 21:20 96 11/11/16 20:26 14 97 11/11/16 20:00 81 11/11/16 19:46 97.7 F 83 24 135/94 98 11/11/16 17:08 27 100 11/11/16 15:57 97.6 F 86 24 154/107 98 11/11/16 15:02 100 11/11/16 14:04 97.4 F L 119 28 198/138 93 L 11/11/16 13:20 16 148/102 11/11/16 12:21 22 149/107 100 11/11/16 11:34 88 14 156/112 100 Intake and Output 11/11/16 11/12/16 11/12/16 23:59 07:59 15:59 Intake Total 366.3 / 366.3 300 / 300 Balance 366.3 / 366.3 300 / 300 Intake: IV Fluids 126.3 / 126.3 60 / 60 Heparin 25,000 UNIT/500 126.3 / 126.3 60 / 60 ML D5W 25,000 unit In 500 ml @ 12 UNIT/KG/HR 14. 152 mls/hr IVC .Q24H SANKET Rx#:[id number] Oral 240 / 240 240 / 240 Other: Meal Dinner Percent of Meal Consumed 0% Weight 60.6 kg Patient Weight 11/12/16 23:59 Weight 60.6 kg General: Other (on Bipap) HEENT: Atraumatic, Normocephaly, Mucus Membranes Moist Neck: No JVD, Normal carotid pulses Cardiac: Reg Rate and Rhythm, Normal S1 and S2, No Murmur Lungs: Other (wheezes, rhonchi) Neuro: Alert and responsive, No focal deficits noted Abdomen: Soft, Non-Tender Skin: No rashes noted on visualized skin Musculoskeletal: No Chest Wall Tenderness Extremities: No Clubbing, No Cyanosis, No Edema, Normal Pulses Results 11/12/16 Unknown 11/12/16 Unknown Lab Results 11/11/16 11/11/16 11/11/16 14:21 16:47 20:14 WBC Hgb Hct Plt Count APTT 86.5 H D Sodium Potassium Chloride Carbon Dioxide BUN Creatinine Glucose Calcium Magnesium Troponin I 1.55 H* 1.50 H* 11/11/16 11/12/16 11/12/16 22:40 05:59 Unknown WBC 12.3 H Hgb 13.7 D Hct 41.7 Plt Count 244 APTT 123.6 H* 32.8 D Sodium Potassium Chloride Carbon Dioxide BUN Creatinine Glucose Calcium Magnesium Troponin I 11/12/16 Unknown WBC Hgb Hct Plt Count APTT Sodium 137 Potassium 3.7 Chloride 101 Carbon Dioxide 24 BUN 24 H Creatinine 1.00 Glucose 185 H Calcium 10.1 Magnesium 1.4 L Troponin I Short CBC 11/12/16 Range/Units Unknown WBC 12.3 H (4.3-11.1) K/mcL Hgb 13.7 D (11.5-15.4) g/dL Hct 41.7 (35.3-44.9) % Plt Count 244 (140-400) K/mcL Neutrophils # 11.2 H (1.6-8.9) K/mcL BMP 11/12/16 Range/Units Unknown Sodium 137 (136-145) mEq/L Potassium 3.7 (3.5-4.5) mEq/L Chloride 101 (98-109) mEq/L Carbon Dioxide 24 (19-29) mEq/L BUN 24 H (7-20) mg/dL Creatinine 1.00 (0.57-1.11) mg/dL Glucose 185 H (70-99) mg/dL Calcium 10.1 (8.6-10.8) mg/dL Cardiac Enzymes 11/11/16 11/11/16 Range/Units 20:14 14:21 Troponin I 1.50 H* 1.55 H* (0-0.03) ng/mL Active Medications Acetaminophen (Tylenol) 650 mg PO Q6HR PRN PRN Reason: Mild Pain (1-3) Stop: 05/13/17 10:34 Albuterol/Ipratropium (Duoneb) 3 ml IH [id number] SANKET PRN Reason: Protocol Stop: 05/13/17 12:01 Last Admin: 11/12/16 07:56 Dose: 3 ml Aspirin (Aspirin Ec) 81 mg PO DAILY [facility] Stop: 05/13/17 09:01 Last Admin: 11/12/16 08:04 Dose: 81 mg Atorvastatin Calcium (Lipitor) 40 mg PO HS [facility] Stop: 05/13/17 21:01 Last Admin: 11/11/16 20:12 Dose: 40 mg Budesonide/Formoterol Fumarate (Symbicort) 2 puff IH BIDR [facility] Stop: 05/13/17 10:01 Last Admin: 11/12/16 07:56 Dose: 2 puff Clonidine HCl (Clonidine Hcl) 0.1 mg PO Q12H PRN PRN Reason: Hypertension Last Admin: 11/12/16 08:05 Dose: 0.1 mg Doxazosin Mesylate (Cardura) 4 mg PO HS [facility] Stop: 05/13/17 21:01 Last Admin: 11/11/16 20:11 Dose: 4 mg Heparin Sodium (Porcine) (Heparin) 3,500 unit 60 unit/kg (3500 unit) IVP Q6HR PRN PRN Reason: SEE COMMENTS Stop: 05/13/17 08:34 Last Admin: 11/12/16 06:47 Dose: 3,500 unit Heparin Sodium (Porcine) (Heparin) 1,800 unit 30 unit/kg (1800 unit) IVP Q6H PRN PRN Reason: SEE COMMENTS Stop: 05/13/17 08:34 Heparin Sodium/Dextrose (Heparin 25,000 Unit/500 Ml D5w) 25,000 unit in 500 mls @ 14.152 mls/hr IVC .Q24H SANKET; 12 UNIT/KG/HR PRN Reason: Protocol Stop: 05/13/17 08:46 Last Titration: 11/12/16 06:48 Dose: 13 unit/kg/hr, 15.331 mls/hr Levofloxacin/Dextrose (Levaquin 750mg/150 Ml) 750 mg in 150 mls @ 100 mls/hr IVPB Q48H SANKET PRN Reason: Protocol Stop: 05/13/17 09:01 Last Infusion: 11/11/16 12:13 Dose: Infused Methylprednisolone (Solu-Medrol) 80 mg IVP Q6HR SANKET Stop: 05/13/17 12:01 Last Admin: 11/12/16 06:03 Dose: 80 mg Morphine Sulfate (Morphine Sulfate) 2 mg IVP Q4HR PRN PRN Reason: Severe Pain (7-10) Stop: 05/13/17 10:34 Naloxone HCl (Narcan) 0.4 mg IVP Q2MIN PRN PRN Reason: Opioid Reversal Stop: 05/13/17 10:34 Ondansetron HCl (Zofran) 4 mg IVP Q8HR PRN PRN Reason: Nausea And Vomiting Stop: 05/13/17 10:34 - Imaging and Cardiology Chest Xray: report reviewed Echo: report reviewed - EKG Interpretation EKG results cardiology: other (12 hour tele AVG HR 83, SR, no significant pauses or arrhythmias) - VTE Reasons for not Prescribing Prophylaxis: Not indicated-Anticoagulated or INR therapeutic Consult Discharge Plan - Plan Referrals: Simone Nieves MD [Primary Care Provider] -
[2016-11-12] MEDS: amLODIPine 5 MG TABLET PO SCH (10:34)
[2016-11-12] MEDS: Furosemide 40 MG/4 ML VIAL IVP SCH ×2 (10:34→20:09)
[2016-11-12] MEDS ORDERED: Magnesium Sulfate 2 GM in D5% in Water 100 ML IVPB ONE (10:43)
[2016-11-12 11:59] LABS: Bilirubin,Urine Negative (Negative); Blood,Urine Negative (Negative); Clarity,Urine Clear (Clear); Color,Urine Yellow (Yellow); Glucose,Urine (UA) Normal (Normal); Ketones,Urine Negative (Negative); Leukocyte Esterase,Urine Negative (Negative); Nitrite,Urine Negative (Negative); Protein,Urine 30 mg/dL (Neg-Trace); Specific Gravity,Urine 1.014 (1.010-1.025); Urobilinogen,Urine Normal (Normal)
[2016-11-12 12:02] LABS: Bacteria,Urine None Seen per hpf (None-Few); Hyaline Casts,Urine None Seen per lpf (None-Few); RBC,Urine 0-3 per hpf (0-3); Squamous Epithelial Cell,Urine Many per lpf (None-Few); WBC,Urine 0-3 per hpf (0-3)
--- NOTE | 2016-11-12 15:00 | Internal Med Progress Note ---
Date of Encounter: 11/12/16 Time of Encounter: 10:00 - Assessment and plan (1) Acute respiratory failure with hypoxia and hypercarbia Current Visit: Yes Status: Acute Assessment and plan: Possibly due to COPD exacerbation. We will treat the underlying disease. BiPAP was supportive treatment as needed. (2) Acute exacerbation of chronic obstructive airways disease Current Visit: Yes Status: Acute Assessment and plan: Patient has COPD exacerbation. We treated her with antibiotics, steroid, and bronchodilator. Closer monitoring (3) CHF (congestive heart failure) Current Visit: Yes Status: Chronic Assessment and plan: Patient has a combined systolic and diastolic dysfunction. EF of 20-25%. Will continue diuretics. Patient was placed on metoprolol and MIMA inhibitor. Qualifiers: Congestive heart failure type: combined Congestive heart failure chronicity : chronic Qualified Code(s): I50.42 - Chronic combined systolic (congestive) and diastolic (congestive) heart failure (4) Elevated troponin Current Visit: Yes Status: Acute Assessment and plan: Consider NSTEMI, on heparin drip, cardiology consult on case, plan for catheterization. Patient is at high risk because she is on heparin drip, needed close monitoring (5) Non-ST elevation myocardial infarction (NSTEMI), initial care episode Current Visit: Yes Status: Acute Assessment and plan: As above (6) Tobacco abuse Current Visit: Yes Status: Acute Assessment and plan: On nicotine patch (7) DVT prophylaxis Current Visit: Yes Status: Acute Assessment and plan: Patient is on heparin drip now - Time Spent With Patient Greater than 35 minutes - Subjective Interval history: Patient is a 60-year-old female admitted for shortness of breath, consider COPD exacerbation. Her past medical history is significant for COPD, hyperlipidemia , hypertension, tobacco abuse. I saw and examined the patient today. She is awake alert, oriented 3. Still in acute respiratory distress. On BiPAP. Denies chest pain, nausea, or vomiting. Echo shows systolic and diastolic CHF, EF 20-25%. Lasix was placed by cardiology. Elevated troponin consider NSTEMI, on heparin drip. Hypomagnesemia noticed, 2 g of magnesium was given. - Constitutional Vitals: Temp Pulse Resp BP Pulse Ox 97.9 F 79 21 134/76 100 11/12/16 10:48 11/12/16 12:22 11/12/16 11:47 11/12/16 10:48 11/12/16 11:47 General appearance: Present: A&O X 3, severe distress - Head Head exam: Present: atraumatic, normocephalic - Eye Eye exam: Present: PERRL, conjuntiva pink, sclera anicteric Pupils: Present: PERRL - Neck Neck exam general surgery: Present: supple, trachea midline. Absent: lymphadenopathy - Respiratory Respiratory exam: Present: CTAB, wheezes (Diffuse wheezes bilaterally). Absent : accessory muscle use, rales, rhonchi - Cardiovascular Cardiovascular exam: Present: RRR, +S1, +S2. Absent: diastolic murmur, gallop, rubs, systolic murmur - GI/Abdominal GI/Abdominal exam: Present: normal bowel sounds, soft, no peritoneal signs. Absent: distended, tenderness - Extremities Exam Extremities exam: Present: warm, radial pulses palpable and symetrical. Absent : calf tenderness, cyanotic, pedal edema - Neurological Exam Neurological exam: Present: CN II-XII intact, oriented X3, no focal deficits. Absent: pronater drift, facial droop, speech deficit - Skin Skin exam: Present: dry, intact Internal Medicine: Result - Labs CBC & Chem 7: 11/12/16 Unknown 11/12/16 Unknown Labs: Short CBC 11/12/16 Range/Units Unknown WBC 12.3 H (4.3-11.1) K/mcL Hgb 13.7 D (11.5-15.4) g/dL Hct 41.7 (35.3-44.9) % Plt Count 244 (140-400) K/mcL Neutrophils # 11.2 H (1.6-8.9) K/mcL BMP 11/12/16 Unknown Sodium 137 Potassium 3.7 Chloride 101 Carbon Dioxide 24 BUN 24 H Creatinine 1.00 Glucose 185 H Calcium 10.1 Cardiac Enzymes 11/11/16 11/11/16 Range/Units 14:21 20:14 Troponin I 1.55 H* 1.50 H* (0-0.03) ng/mL Urine 11/12/16 Range/Units 11:46 Urine Color Yellow (Yellow) Urine Clarity Clear (Clear) Urine pH 6.0 (5.0-8.0) pH Units Ur Specific [place] 1.014 (1.010-1.025) Urine Protein 30 H (Neg-Trace) mg/dL Urine Glucose (UA) Normal (Normal) mg/dL - ABG Interpretation ABG results: ABG ABG pH 7.34 pH Units (7.32-7.45) 11/11/16 08:24 ABG pCO2 49 mmHg (35-45) H 11/11/16 08:24 ABG pO2 132 mmHg (85-104) H 11/11/16 08:24 ABG O2 Saturation 99 % (95-98) H 11/11/16 08:24 PT/INR, D-dimer PT 10.1 Seconds (9.4-12.1) 11/11/16 09:08 - VTE Reasons for not Prescribing Prophylaxis: Not indicated-Anticoagulated or INR therapeutic Consult Discharge Plan - Plan Referrals: Simone Nieves MD [Primary Care Provider] - 11/21/16 9:45 am ()
--- NOTE | 2016-11-12 18:34 | Electrocardiograph Report ---
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
[2016-11-12] MEDS: Heparin 25,000 UNIT/500 ML D5W 25,000 UNIT/500 ML MLS IVC SCH (20:09)
[2016-11-13] MEDS: Ipratropium/Albuterol Neb 3 ML IH SCH ×6 (00:18→20:08)
[2016-11-13 02:16] LABS: Activated Partial Thrombo Time 167.3 Seconds (26.0-36.0)
[2016-11-13 02:23] LABS: Heparin anti-factor XA UFH 1.21 IU/mL (0.30-0.70)
[2016-11-13 03:39] LABS: Basophils % 0.1 %; Hematocrit 39.1 % (35.3-44.9); Hemoglobin 13.3 g/dL (11.5-15.4); Immature Granulocytes % 0.8 % (0-4); Immature Platelets 4.3 % (1.1-6.1); Lymphocytes # 0.8 K/mcL (0.6-4.6); Lymphocytes % 4.8 %; Mean Corpuscular Hemoglobin 30.2 pg (28.0-33.3); Mean Corpuscular Volume 88.7 fL (83.0-100.0); Mean Platelet Volume 9.8 fL (9.4-12.4); Monocytes # 0.3 K/mcL (0.0-1.3); Monocytes % 2.1 %; Neutrophils # 14.4 K/mcL (1.6-8.9); Platelet Count 242 K/mcL (140-400); Red Blood Count 4.41 M/mcL (3.82-4.97); Red Cell Distribution Width 12.4 % (11.5-14.5); Segmented Neutrophils % 92.2 %
[2016-11-13 03:52] LABS: BUN/Creatinine Ratio 31 (6-26); Blood Urea Nitrogen 30 mg/dL (7-20); Calcium 9.5 mg/dL (8.6-10.8); Carbon Dioxide 27 mEq/L (19-29); Chloride 96 mEq/L (98-109); Glucose 168 mg/dL (70-99); Magnesium 1.8 mg/dL (1.6-2.6); Osmolality,Calculated 292 (280-300); Potassium 3.1 mEq/L (3.5-4.5); Sodium 136 mEq/L (136-145); eGFR For African Americans > 60 (> 60); eGFR For Non-African Americans 59 (> 60)
--- NOTE | 2016-11-13 05:46 | Event Note ---
Date of Encounter: 11/11/16 Time of Encounter: 08:00 Procedure note: Arterial blood gas draw Indication: Acute respiratory distress emergent need for evaluation of arterial blood gases Procedure churn operator: Mahamed Richard MD Procedure description: While the patient was lying in a supine position the right wrist was isolated and radial artery was palpated at the wrist. The site was cleaned and prepped with antiseptic and the radial artery was punctured with a needle attached to a syringe while constantly palpating the radial artery. Pulsatile arterial blood return was noticed in the syringe. The needle was withdrawn and I applied pressure to the side for 2 minutes. The patient tolerated the procedure well. Estimated blood loss 2 mL. Both ulnar and radial pulses were palpated and present 5 minutes after the procedure. Patient reported no pain in the hand and capillary refill was adequate.
[2016-11-13] MEDS: methylPREDNISolone 125 MG/2 ML VIAL IVP SCH ×4 (06:09→23:28)
[2016-11-13] MEDS ORDERED: Potassium Chloride Elixir 20 MEQ/15 ML UDC PO ONE (07:35)
[2016-11-13] MEDS: amLODIPine 5 MG TABLET PO SCH (07:48)
[2016-11-13] MEDS: Levofloxacin 750 MG/150 ML 750 MG/150 ML BAG IVPB SCH (07:48)
[2016-11-13] MEDS: Aspirin Enteric Coated 81 MG Tablet PO SCH (07:48)
[2016-11-13] MEDS: Furosemide 40 MG/4 ML VIAL IVP SCH ×2 (07:50→20:54)
[2016-11-13] MEDS: Budesonide/Formoterol 160/4.5 MDI IH SCH ×2 (08:02→20:08)
[2016-11-13] MEDS ORDERED: Magnesium Sulfate 2 GM in D5% in Water 100 ML IVPB ONE (08:36)
--- NOTE | 2016-11-13 10:58 | Event Note ---
Date of Encounter: 11/13/16 Time of Encounter: 10:57 - Cardiology Event Note Pt reports breathing is improved this AM. She is able to lay flat on 3L O2 NC without distress. Will proceed with [facility] today for NSTEMI and new CMP. R/B/A discussed. Pt agrees.
[2016-11-13] MEDS: *HR* Heparin 5,000 UNIT/ML VIAL IVP PRN (11:33)
[2016-11-13] MEDS ORDERED: *HR* Heparin 10,000 UNIT/10 ML VIAL ONE (13:19)
[2016-11-13] MEDS ORDERED: Heparin 1,000 UNITS/500 mL NS 500 ML ONE (13:19)
[2016-11-13] MEDS ORDERED: 0.9 % Sodium Chloride 1,000 ML ONE ×2 (13:19→14:07)
[2016-11-13] MEDS ORDERED: Nitroglycerin 1,000 MCG/10 ML VIAL IV ONE (13:19)
[2016-11-13] MEDS ORDERED: *HR* Midazolam HCl 2 MG/2 ML VIAL ONE (14:10)
[2016-11-13] MEDS ORDERED: *HR* FentaNYL (PF) 100 MCG/2 ML VIAL ONE (14:11)
--- NOTE | 2016-11-13 14:43 | Pre-Sedation Evaluation ---
Pre-sedation evaluation - Pre-sedation checklist Date of procedure: 11/13/16 Procedure: [facility] Recent Vitals: Last Vital Signs Temp 98 F 11/13/16 11:26 Pulse 83 11/13/16 11:49 Resp 18 11/13/16 11:26 BP 154/96 11/13/16 11:26 Pulse Ox 97 11/13/16 11:26 H&P (including ROS) documented in medical record: No Dietary Status: NPO after Midnight Dentition: No loose teeth or bridges Possible difficult airway: No ASA Classification *see protocol: CLASS III-Severe systemic disease Plan of Care: Pt appropriate candidate for procedure/moderate/conscious sedation , Risks/benefits of procedure/sedation discussed w/ patient/family, If not NPO; Risk of intake outweiged by necessity to perform procedure
[2016-11-13] MEDS ORDERED: *HR* Bivalirudin 250 MG VIAL IVC ONE (15:09)
--- NOTE | 2016-11-13 15:13 | Internal Med Progress Note ---
Date of Encounter: 11/13/16 Time of Encounter: 10:00 - Assessment and plan (1) Acute respiratory failure with hypoxia and hypercarbia Current Visit: Yes Status: Acute Assessment and plan: Due to COPD exacerbation. We will treat the underlying disease. BiPAP supportive treatment as needed. (2) Acute exacerbation of chronic obstructive airways disease Current Visit: Yes Status: Acute Assessment and plan: Patient has COPD exacerbation. We treated her with antibiotics, steroid, and bronchodilator. Closer monitoring (3) CHF (congestive heart failure) Current Visit: Yes Status: Chronic Assessment and plan: Patient has a combined systolic and diastolic dysfunction. EF of 20-25%. Will continue diuretics. Patient was placed on metoprolol and MIMA inhibitor. Qualifiers: Congestive heart failure type: combined Congestive heart failure chronicity : chronic Qualified Code(s): I50.42 - Chronic combined systolic (congestive) and diastolic (congestive) heart failure (4) Elevated troponin Current Visit: Yes Status: Acute Assessment and plan: Consider NSTEMI, on heparin drip, cardiology consult on case, plan for catheterization today. Patient is at high risk because she is on heparin drip, needed close monitoring (5) Non-ST elevation myocardial infarction (NSTEMI), initial care episode Current Visit: Yes Status: Acute Assessment and plan: As above (6) Tobacco abuse Current Visit: Yes Status: Acute Assessment and plan: On nicotine patch (7) DVT prophylaxis Current Visit: Yes Status: Acute Assessment and plan: Patient is on heparin drip now - Time Spent With Patient Greater than 35 minutes - Subjective Interval history: Patient is a 60-year-old female admitted for shortness of breath, consider COPD exacerbation. Her past medical history is significant for COPD, hyperlipidemia , hypertension, tobacco abuse. I saw and examined the patient today. She is awake alert, oriented 3. Still in acute respiratory distress but much less than yesterday. Oxygen saturation 97% on 2 L oxygen nasal cannula. Denies chest pain, nausea, or vomiting. Patient applied for cardiac catheterization today for her NSTEMI. Continue close monitoring - Constitutional Vitals: Temp Pulse Resp BP Pulse Ox 98 F 83 18 154/96 97 11/13/16 11:26 11/13/16 11:49 11/13/16 11:26 11/13/16 11:26 11/13/16 11:26 General appearance: Present: A&O X 3, severe distress - Head Head exam: Present: atraumatic, normocephalic - Eye Eye exam: Present: PERRL, conjuntiva pink, sclera anicteric Pupils: Present: PERRL - Neck Neck exam general surgery: Present: supple, trachea midline. Absent: lymphadenopathy - Respiratory Respiratory exam: Present: CTAB, wheezes (Diffused wheezes bilaterally). Absent : accessory muscle use, rales, rhonchi - Cardiovascular Cardiovascular exam: Present: RRR, +S1, +S2. Absent: diastolic murmur, gallop, rubs, systolic murmur - GI/Abdominal GI/Abdominal exam: Present: normal bowel sounds, soft, no peritoneal signs. Absent: distended, tenderness - Extremities Exam Extremities exam: Present: warm, radial pulses palpable and symetrical. Absent : calf tenderness, cyanotic, pedal edema - Neurological Exam Neurological exam: Present: CN II-XII intact, oriented X3, no focal deficits. Absent: pronater drift, facial droop, speech deficit - Skin Skin exam: Present: dry, intact Internal Medicine: Result - Labs CBC & Chem 7: 11/13/16 03:30 11/13/16 03:30 Labs: Short CBC 11/13/16 Range/Units 03:30 WBC 15.6 H (4.3-11.1) K/mcL Hgb 13.3 (11.5-15.4) g/dL Hct 39.1 (35.3-44.9) % Plt Count 242 (140-400) K/mcL Neutrophils # 14.4 H (1.6-8.9) K/mcL BMP 11/13/16 03:30 Sodium 136 Potassium 3.1 L Chloride 96 L Carbon Dioxide 27 BUN 30 H Creatinine 0.96 Glucose 168 H Calcium 9.5 Cardiac Enzymes 11/13/16 Range/Units 03:30 Troponin I 0.44 H* (0-0.03) ng/mL - ABG Interpretation ABG results: ABG ABG pH 7.34 pH Units (7.32-7.45) 11/11/16 08:24 ABG pCO2 49 mmHg (35-45) H 11/11/16 08:24 ABG pO2 132 mmHg (85-104) H 11/11/16 08:24 ABG O2 Saturation 99 % (95-98) H 11/11/16 08:24 PT/INR, D-dimer PT 10.1 Seconds (9.4-12.1) 11/11/16 09:08 - VTE Reasons for not Prescribing Prophylaxis: Not indicated-Anticoagulated or INR therapeutic Consult Discharge Plan - Plan Referrals: Simone Nieves MD [Primary Care Provider] - 11/21/16 9:45 am ()
[2016-11-13] MEDS ORDERED: Nitroglycerin 25 MG/250 ML INFUS..BTL IVC ONE (15:19)
[2016-11-13] MEDS ORDERED: Aspirin 325 MG TABLET ONE (15:23)
[2016-11-13] MEDS ORDERED: *HR* HYDROcodone/Acet 5/325 mg TABLET PO PRN (15:24)
[2016-11-13] MEDS ORDERED: 0.9 % Sodium Chloride 1,000 ML IVC SCH (15:30)
[2016-11-13] MEDS ORDERED: Nitroglycerin 25 MG/250 ML INFUS..BTL IVC SCH (15:30)
--- NOTE | 2016-11-13 15:39 | Invasive Diagnostic Lab ---
Name: Yulissa Crawford Date of Study: 11/13/2016 Date: 1955 Ht: 59.0 cm /23.2 in Medical Record#: [id number] Age: 60 Wt: 160. kg / 352.74 lb Account/Order#: [id number] Gender: Female BSA: 1.19 Order #: [id number] Fluoro Dose: 403 mGy BMI: 459.64 Procedure Physician: Albino Iqbal MD Referring MD: Referring MD: Procedures Performed: LEFT HEART CATH Indications: Cardiomyopathy Impressions: There is severe one vessel coronary artery disease. The left ventricle is normal and has normal contractility EF 50% Patient had successful PTCA/Drug-Eluting Stent placement in the mid Circ. Recommendations: Optimal medical therapy of patient's disease. Aggressive risk factor modification. Patient being referred for cardiac rehab. History/Risk Factors: COPD Acute respiratory failure deression Hypertension Current/Recent Smoker Chronic Lung Disease Procedure Patient had successful PTCA/Drug-Eluting Stent placement in the mid Circ. Complications: None Contrast: Isovue 205ml Hemodynamics: Pressures Site Systolic/ A Wave Diastolic/ V Wave End Diastolic/ Mean HR AO 132 79 103 87 AO 132 74 100 86 AO 138 93 114 91 AO 136 86 109 93 LV 156 4 17 95 LV 120 57 79 89 AO 132 86 108 91 AO 162 82 115 88 AO 155 88 117 87 AO 145 92 117 98 LV Ventriculography Ejection Method: LV Gram Ejection Fraction: 50% Wall Motion: RICE Anterobasal Normal Anterolateral Normal Apical: Normal Inferoapical Normal Inferobasal Normal Coronary Dominance: Lesion Findings/Interventions * Left Main Coronary Artery The LMCA is angiographically free of disease. * Left Anterior Descending There is a 30% stenosis in the Proximal LAD. The lesion has a ANANTH flow of 3. * Circumflex There is a 28 mm long, 70% stenosis in the Mid Circumflex. The lesion has a ANANTH flow of 3. An intervention was performed on the Mid Circumflex with a final stenosis of 0%. There were no lesion complications. The final ANANTH flow was 3. * Right Coronary Artery There is a 40% stenosis in the Proximal RCA. The lesion has a ANANTH flow of 3. There is a 50% stenosis in the Mid RCA. The lesion has a ANANTH flow of 3. There is a 30% stenosis in the Distal RCA. The lesion has a ANANTH flow of 3. Interventional Device(s) Vessel Segment Type Name Diameter (mm) Length (mm) Mid Circumflex balloon Emerge Monorail 2 15 Mid Circumflex drug-eluting stent Synergy 2.25 28 Updated by RT Melquiades (R) on 11/13/2016 3:34:18 PM Albino Iqbal MD electronically signed on 11/13/2016 3:34:40 PM with status of Final
--- NOTE | 2016-11-13 15:42 | Invasive Diagnostic Lab Proc ---
Name: Yulissa Crawford Date of Study: 11/13/2016 Date: 1955 Ht: 23.2in Medical Record#: [id number] Age: 60 Wt: 352.74lb Gender: Female BSA: 1.19 Order #: [id number] BMI: 459.64 Physicians Procedure Physician: Albino Iqbal MD Referring MD: Referring MD: Staff Name Position Time In Lou Ortiz RT (R) Monitor 02:48 PM Lelo Purdy RN Semi Driver 02:48 PM Stella Gu RT (R) Scrub 02:48 PM Indications Indication Cardiomyopathy Procedures Performed Procedure L HRT ARTERY/VENTRICLE ANGIO PRQ CARD FAREED STENT W/ANGIO 1 VSL Pre-Procedure Checklist Informed consent is complete signed and on chart. H\\T\\P is on chart. ID band is on and ID verified with patient. Patient NPO for procedure The procedure was described for the patient and questions were answered. Blood Pressure: 165/90 ECG is on chart. Plan of Care Patient will tolerate the procedure without complications. Adequate level of comfort will be maintained. Hemodynamics will remain stable Patient will recover from procedure without complications. Respiratory function will be maintained. Cardiac rhythm will remain stable. Patient temperature will be maintained. Patient and/or family have verbalized understanding of the procedure. Patient Education Chief Complaint/Reason for Test: Cardiac Cath Developmental Category: Adult (18-64 years) Developmentally Appropriate for Age: Yes Learning Barriers: None Education Needs: Procedure Education Method: Verbal Information Taught: Cardiac Cath Educational Evaluation: Able to repeat information Intravenous Access Time IV Size Location DC'd Fluid/Drip Rate Units RN 02:47 PM 18g 1 10/02" Patent On Arrival Rt Antecubital 0.9NaCl 25 ml/hr Lelo Purdy RN Allergies bactrim trimethoprim sulfamethoxazole Vital Signs Time BP (mmHg) HR (bpm) O2 Sat. RR (bpm) LOC 165 / 90 74 96 % 16 5 = Fully awake and oriented or at pre-proc level 02:49 PM / % 5 = Fully awake and oriented or at pre-proc level 02:49 PM / % 4 = Oriented but drowsy 03:05 PM / % 4 = Oriented but drowsy 02:48 PM 173 / 91 81 95 % 18 02:52 PM 162 / 90 83 92 % 15 02:57 PM 173 / 94 90 93 % 16 03:02 PM 158 / 69 95 93 % 18 03:07 PM 162 / 88 89 93 % 19 03:12 PM 167 / 86 92 94 % 19 03:17 PM 166 / 90 103 93 % 19 03:22 PM 174 / 92 98 93 % 18 03:27 PM 179 / 92 89 94 % 34 Procedural Medications Time Medication Dose Units Method Given By 02:48 PM Oxygen 2 L/min nasal cannula Lelo Purdy RN 02:49 PM Versed 1 mg Intravenous Lelo Purdy RN 02:49 PM Fentanyl 50 mcg Intravenous Lelo Purdy RN 02:51 PM Lidocaine 2% 17 ml Subcutaneous Albino Iqbal MD 02:54 PM Oxygen 3 L/min nasal cannula Lelo Purdy RN 03:00 PM Nitroglycerin 200 mcg Intracoronary Albino Iqbal MD 03:06 PM Angiomax 0.75mg/kg bolus: 9 ml Intravenous Lelo Purdy RN 03:06 PM Angiomax 1.75mg/kg/hr: 21 ml Intravenous Lelo Purdy RN 03:11 PM Nitroglycerin 200 mcg Intracoronary Albino Iqbal MD 03:16 PM Nitroglycerin 200 mcg Intracoronary Albino Iqbal MD 03:23 PM Plavix 600 mg Orally Lelo Purdy RN 03:23 PM Aspirin (325mg) 325 mg Orally Lelo Purdy RN 03:24 PM Nitroglycerin 10 mcg/min Intravenous Lelo Purdy RN ASA Classification: CLASS II- Mild systemic disease (i.e. well-controlled diabetes, hypertension, asthma, cigarette smoking) Tung Score Preprocedure Postprocedure Activity 2- Moves 4 extremities sustained head lift Activity 2- Moves 4 extremities sustained head lift Circulation 2- SBP +/= 20 points of pre-anesthetic level Circulation 2- SBP +/= 20 points of pre-anesthetic level Consciousness 2- Awake and alert oriented x 3 Consciousness 2- Awake and alert oriented x 3 O2 Saturation 1- Needs O2 inhalation to maintain O2 saturation of 90% O2 Saturation 1- Needs O2 inhalation to maintain O2 saturation of 90% Respiratory 1- Labored or limited respiration requires airway Respiratory 1- Labored or limited respiration requires airway Total Score 8 Total Score 8 Contrast Agent: Isovue Diagnostic Contrast: 205 ml Total Contrast: 205 ml Fluoro Dose: 403 mGy Procedure Log Time Note Enter By 02:22 PM CathStat 02:46 PM Vitals capture started with the following parameters, Patient=Adult, Interval=5 min, Initial Kjytmeyw=847 mmHg, Deflation Rate=5 mmHg, Cuff placed on Left Leg 02:47 PM Pt arrived to gold leaf laborer 2 at 14:47 twilson 02:48 PM Lou Ortiz RT (R) Position: Monitor Time in: 14:48 twilson 02:48 PM HR=81 bpm, ILYF=726/91 mmhg, SpO2=95.0 %, Resp=18 B/min 02:48 PM Lelo Purdy RN Position: Semi Driver Time in: 14:48 twilson 02:48 PM Stella Gu RT (R) Position: Scrub Time in: 14:48 twilson 02:48 PM Patient charges- Angio tray pack, Navilyst 3mm J, Pulse Oximetry and ACIST tubing and transducer twilson 02:48 PM Case Delayed no twilson 02:48 PM Physician arrived 14:48 twilson 02:48 PM Meet and greet completed twilson 02:48 PM Sign in performed according to hospital policy. twilson 02:48 PM Procedure start 14:48 twilson 02:48 PM ASA Class CLASS II- Mild systemic disease (i.e. well-controlled diabetes, hypertension, asthma, cigarette smoking) twilson 02:48 PM Hair removed from procedure site in procedure area using clippers. Bilateral groin prepped with Chloraprep by Lou Ortiz RT (R) then patient draped. Skin intact. twilson 02:48 PM Time: 14:48 Oxygen on at 2 L/min per nasal cannula by Lelo Purdy RN twilson 02:49 PM Time: 14:49 Patient comfortable and pain free: Yes twilson 02:49 PM Time: 14:49LOC: 5 = Fully awake and oriented or at pre-proc level twilson 02:49 PM Time: 14:49 Versed 1 mg Intravenous Given by Lelo Purdy RN twilson 02:49 PM Time: 14:49 Fentanyl 50 mcg Intravenous Given by Lelo Purdy RN twilson 02:51 PM Time: 14:51 17 ml Lidocaine 2% to right groin Subcutaneous Given by Albino Iqbal MD twilson 02:52 PM Micro-Introducer Kit utilized for sheath placement twilson 02:52 PM HR=83 bpm, LVDP=251/90 mmhg, SpO2=92.0 %, Resp=15 B/min 02:53 PM 5Fr FL 4 catheter inserted over the wire DNC twilson 02:53 PM Wire removed, intact. twilson 02:54 PM Recorded Pressure: Ao, HR=87, Condition=Condition 1 (Aorta) Ao 132/79/103 02:54 PM LCA angiography performed in multiple views. twilson 02:54 PM Time: 14:54 Oxygen on at 3 L/min per nasal cannula by Lelo Purdy RN twilson 02:55 PM Recorded Pressure: Ao, HR=86, Condition=Condition 1 (Aorta) Ao 132/74/100 02:55 PM Lesion found in Proximal LAD. Pre Stenosis: 30 Pre ANANTH Flow: 3: Complete and Brisk Flow/Perfusion twilson 02:55 PM Proximal Left Anterior Descending Coronary Artery with 30% stenosis. If graft is supplying this territory, 0 % stenosis. twilson 02:55 PM Wire reinserted twilson 02:56 PM Pressure channel 1 zeroed. 02:56 PM 5Fr FR 4 catheter inserted over the wire DNC twilson 02:56 PM Wire removed, intact. twilson 02:57 PM Recorded Pressure: Ao, HR=91, Condition=Condition 1 (Aorta) Ao 138/93/114 02:57 PM RCA angiography performed in multiple views. twilson 02:57 PM HR=90 bpm, IOAK=839/94 mmhg, SpO2=93.0 %, Resp=16 B/min 02:58 PM Lesion found in Proximal RCA. Pre Stenosis: 40 Pre ANANTH Flow: 3: Complete and Brisk Flow/Perfusion twilson 02:58 PM Lesion found in Mid RCA. Pre Stenosis: 50 Pre ANANTH Flow: 3: Complete and Brisk Flow/Perfusion twilson 02:58 PM Lesion found in Distal RCA. Pre Stenosis: 30 Pre ANANTH Flow: 3: Complete and Brisk Flow/Perfusion twilson 02:58 PM Right Coronary, Right Posterior Descending Arteries with Right Posterolateral and Acute Marginal branches with 50 % stenosis. If graft is supplying this area, 0 % stenosis twilson 02:58 PM Wire reinserted twilson 02:58 PM Catheter removed twilson 02:59 PM 5Fr FL 4 catheter inserted over the wire DNC twilson 03:00 PM Time: 15:00 Nitroglycerin 200 mcg Intracoronary Given by Albino Iqbal MD twilson 03:00 PM Recorded Pressure: Ao, HR=93, Condition=Condition 1 (Aorta) Ao 136/86/109 03:00 PM LCA angiography performed in multiple views. twilson 03:02 PM Lesion found in Mid Circumflex. Pre Stenosis: 70 Pre ANANTH Flow: 3: Complete and Brisk Flow/Perfusion twilson 03:02 PM Circumflex, Obtuse Marginal, Left Posterior Descending, and Left Posterolateral Coronary Arteries with 70 % stenosis. If graft is supplying this area, 0 % stenosis twilson 03:02 PM HR=95 bpm, CBDX=463/69 mmhg, SpO2=93.0 %, Resp=18 B/min 03:02 PM 5Fr Pigtail catheter inserted over the wire [facility] twilson 03:02 PM Catheter selectively placed in left ventricle twilson 03:02 PM Wire removed, intact. twilson 03:02 PM Recorded Pressure: LV, HR=95, Condition=Condition 1 (Left Ventricle) LV 156/4/17 03:03 PM Bolus angiogram of left Ventricle complete: 10 ml/sec for a total of 30 mls twilson 03:03 PM Recorded Pressure: LV, Ao, HR=90, Condition=Condition 1 (Left Ventricle) LV 120/57/79, (Aorta) Ao 132/86/108 03:05 PM Time: 14:49LOC: 4 = Oriented but drowsy twilson 03:05 PM Time: 14:49 Patient comfortable and pain free: Yes twilson 03:05 PM Wire reinserted and catheter removed. tw 03:05 PM Sheath exchanged for a 6 Fr 11 cm [employer] [place] sheath [id number] twilson 03:05 PM Inflation device was opened. twilson 03:06 PM Time: 15:06 Angiomax 0.75mg/kg bolus: 9 ml Intravenous Given by Lelo Purdy RN Chandler pump twilson 03:06 PM Time: 15:06 Angiomax 1.75mg/kg/hr: 21 ml Intravenous Given by Lelo Purdy RN Chandler pump twilson 03:07 PM Recorded Pressure: Ao, HR=88, Condition=Condition 1 (Aorta) Ao 162/82/115 03:07 PM 6Fr XB3.5 Cordis guide catheter was used to cannulate the PCI vessel successfully. reused? No twilson 03:07 PM HR=89 bpm, WBBV=846/88 mmhg, SpO2=93.0 %, Resp=19 B/min 03:08 PM Guide catheter removed intact. Unable to engage with this catheter. twilson 03:08 PM 6Fr XB3.0 Cordis guide catheter was used to cannulate the PCI vessel successfully. reused? No twilson 03:08 PM Wire removed, intact. twilson 03:09 PM Recorded Pressure: Ao, HR=87, Condition=Condition 1 (Aorta) Ao 155/88/117 03:10 PM .014 Iron Man 190cm guide wire across target lesion- successful. reused? No twilson 03:11 PM Time: 15:11 Nitroglycerin 200 mcg Intracoronary Given by Albino Iqbal MD twilson 03:12 PM HR=92 bpm, VWUB=021/86 mmhg, SpO2=94.0 %, Resp=19 B/min 03:14 PM 2.0 mm x 15 mm Emerge Monorail balloon across target lesion- successful. reused? No twilson 03:14 PM Balloon inflated @ 6 baljinder for 10 seconds twilson 03:16 PM Time: 15:16 Nitroglycerin 200 mcg Intracoronary Given by Albino Iqbal MD twilson 03:16 PM Balloon catheter removed intact. twilson 03:17 PM GA=211 bpm, KEUX=243/90 mmhg, SpO2=93.0 %, Resp=19 B/min 03:19 PM 2.25mm x 28mm Synergy drug-eluting stent across target lesion- successful Lot #[id number] twilson 03:20 PM Time: 15:05 Patient comfortable and pain free: Yes twilson 03:20 PM Time: 15:05LOC: 4 = Oriented but drowsy twilson 03:20 PM Stent deployed @ 11 baljinder for 11 seconds twilson 03:20 PM Recorded Pressure: Ao, HR=98, Condition=Condition 1 (Aorta) Ao 145/92/117 03:20 PM Stent delivery system removed, intact. twilson 03:21 PM Guidewire removed, intact. twilson 03:21 PM Guide catheter removed intact. twilson 03:22 PM Bolus angiogram of right Femoral complete: 4 ml/sec for a total of 7 mls twilson :22 PM Procedure completed at 15:22 twilson 03:22 PM HR=98 bpm, DBJQ=290/92 mmhg, SpO2=93.0 %, Resp=18 B/min 03:23 PM Time: 15:23 Plavix 600 mg Orally Given by Lelo Purdy RN twilson 03:23 PM Time: 15:23 Aspirin (325mg) 325 mg Orally Given by Lelo Purdy RN twilson 03:24 PM Time: 15:24 Nitroglycerin 10 mcg/min Intravenous Given by Lelo Purdy RN Chandler pump twilson 03:25 PM Sign out completed: Radiation Dose 402.93 mGy Fluoro Time: 5.8 Isovue 370 - 200ml contrast 205 ml given by Albino Iqbal MD. Complications: NoneCardiac Rehab Consult needed: YesConfirmed administered medications: Yes twilson 03:25 PM Isovue 370 - 500ml,1 Bottle(s) used. twilson 03:25 PM Sheath left in place to be pulled on floor/holding areaV+Pad twilson 03:25 PM Post ECG NSR twilson 03:25 PM Post Blood Pressure 174/92 twilson 03:26 PM 15:26 Post Pulses Bilateral DP \\T\\ PT 2+ twilson 03:26 PM Information taught Cardiac Cath and PCI twilson 03:26 PM Education needs Procedure, Plan of Care, and Responsibilities of Patient in Care twilson 03:26 PM Learning barriers :None twilson 03:26 PM Education Methods Verbal twilson 03:26 PM Education evaluation Able to repeat information twilson 03:26 PM Site status No bleeding/hematoma - Rt Groin as reported by Stella Gu RT (R) at 15:26 twilson 03:26 PM Family placed in consult room. twilson 03:27 PM Plavix, Effient or Brilinta given Yes twilson 03:27 PM HR=89 bpm, VPXU=688/92 mmhg, SpO2=94.0 %, Resp=34 B/min 03:27 PM Delay to floor No twilson 03:34 PM Report given to Jeanine BULLARD Pt taken to 2N Room #7. 15:34 twilson 03:34 PM Patient out of room: 15:34 twilson Complications Complication None Hemodynamics Pressures Site Systolic/A Wave Diastolic/V Wave Mean AO 132 79 103 AO 132 74 100 AO 138 93 114 AO 136 86 109 LV 156 4 17 LV 120 57 79 AO 132 86 108 AO 162 82 115 AO 155 88 117 AO 145 92 117 Post Procedure Information Blood Pressure: 174/92 mmHg Rhythm: NSR Post procedural instructions were given Site Checks Time Location Status Staff Sheath In? Note 03:26 PM Rt Groin No bleeding/hematoma Stella Gu RT (R) Pulses Time Site Pre-Procedure Post-Procedure Note 11/13/2016 12:20:00 PM Bilateral DP \\T\\ PT 2+ 11/13/2016 12:20:00 PM Bilateral radial 2+ 3:26:00 PM Bilateral DP \\T\\ PT 2+ Updated by Lou Ortiz RT (R) on 11/13/2016 3:36:39 PM electronically signed on 11/13/2016 3:37:16 PM with status of Final
[2016-11-13] MEDS ORDERED: GuaiFENesin/Codeine Oral Soln 5 ML UDC PO PRN (15:56)
[2016-11-13] MEDS: cloNIDine HCl 0.1 MG TABLET PO PRN (16:16)
[2016-11-13] MEDS: Ondansetron 4 MG/2 ML VIAL IVP PRN (16:16)
[2016-11-14] MEDS: Ipratropium/Albuterol Neb 3 ML IH SCH ×8 (00:04→23:05)
[2016-11-14 06:38] LABS: Basophils % 0.1 %; Hematocrit 37.3 % (35.3-44.9); Hemoglobin 12.4 g/dL (11.5-15.4); Immature Granulocytes % 1.2 % (0-4); Lymphocytes # 0.6 K/mcL (0.6-4.6); Lymphocytes % 5.8 %; Mean Corpuscular HGB Conc 33.2 g/dL (31.6-35.5); Mean Corpuscular Volume 90.1 fL (83.0-100.0); Mean Platelet Volume 9.8 fL (9.4-12.4); Monocytes # 0.3 K/mcL (0.0-1.3); Monocytes % 2.6 %; Neutrophils # 9.9 K/mcL (1.6-8.9); Platelet Count 211 K/mcL (140-400); Red Blood Count 4.14 M/mcL (3.82-4.97); Red Cell Distribution Width 12.7 % (11.5-14.5); Segmented Neutrophils % 90.3 %
[2016-11-14 07:04] LABS: BUN/Creatinine Ratio 30 (6-26); Blood Urea Nitrogen 29 mg/dL (7-20); Carbon Dioxide 26 mEq/L (19-29); Chloride 100 mEq/L (98-109); Glucose 138 mg/dL (70-99); Osmolality,Calculated 290 (280-300); Sodium 136 mEq/L (136-145); eGFR For African Americans > 60 (> 60); eGFR For Non-African Americans 59 (> 60)
[2016-11-14] MEDS: methylPREDNISolone 125 MG/2 ML VIAL IVP SCH ×2 (07:31→16:12)
[2016-11-14] MEDS: Furosemide 40 MG/4 ML VIAL IVP SCH (07:31)
[2016-11-14] MEDS: Aspirin Enteric Coated 81 MG Tablet PO SCH (07:32)
[2016-11-14] MEDS: Metoprolol XL (24 HR) Succ 25 MG TAB.ER.24H PO SCH (07:32)
[2016-11-14] MEDS: amLODIPine 5 MG TABLET PO SCH (07:32)
[2016-11-14] MEDS: Budesonide/Formoterol 160/4.5 MDI IH SCH ×2 (07:59→20:12)
[2016-11-14] MEDS ORDERED: Aspirin 81 MG TAB.CHEW PO SCH (09:00)
--- NOTE | 2016-11-14 10:12 | Cardiology Progress Note ---
Date of Encounter: 11/14/16 Time of Encounter: 10:00 Assessment and Plan (1) Acute systolic (congestive) heart failure Current Visit: Yes Status: Acute Echo resulted-- EF 20-25%, grossly, severe global LV systolic dysfunction. No significant valvular disease. Stress test last week showed a preserved gated EF. Peak troponin=1.6 with downward trend. 11/13/16 LHC: EF 50% per LV gram. s/p successful PTCA/FAREED to mLCx; otherwise mild -moderate CAD--30% pLAD, 40% pRCA, 50% mRCA, and 30% dRCA. No events overnight, telemetry stable, avg HR=82 SR. Emphasized importance of uninterrupted DAPT (asa + plavix) for at least 1 year. Additional post PCI guidelines discussed including care of cath site. Appears euvolemic upon exam--decrease lasix to 40 mg daily. CHF teaching reinforced including low sodium diet, and 2L fluid restriction. Encouraged daily weights. Continue statin, betablocker (Toprol XL), and norvasc. Will add ARB for improved BP control. Discussed with Dr. Alexandra, recommend repeat limited echocardiogram as outpatient to re-assess EF. Will need 5-7 day follow-up with [facility]--communicated to office staff via eCW. (2) Non-ST elevation myocardial infarction (NSTEMI), initial care episode Current Visit: Yes Status: Acute plan as above. Cardiac rehab consulted. (3) Acute respiratory failure with hypoxia and hypercarbia Current Visit: Yes Status: Acute Continues to have significant wheezes on exam. Now on oxygen per N/C. Denies use of BiPap overnight. Further mgmt per primary team. (4) Uncontrolled hypertension Current Visit: Yes Status: Acute Continues to have uncontrolled BP; however accuracy of readings may be questionable (BP cuff on adult). Recommend to move to left upper arm with appropriate sized cuff. Wean NTG gtt off to keep SBP less than 160. Will start ARB--ACEi d/c'ed due to chronic cough. Continue betablocker and norvasc. Discussion w patient/family: The assessment and plan as outlined above was discussed with the patient and/or family members who expressed understanding and agreement. All questions were answered. Thank you for involving us in the care of your patient. Please call with any questions. The patient will be discussed and reviewed with Dr. Alexandra; changes to be made accordingly. Subjective Principal diagnosis: NSTEMI, COPD exacerbation Interval history: Seen and examined. No events overnight, on NTG gtt for hypertension--BP cuff noted to be on calf. Denies chest pain or discomfort, no issues with right groin cath site. Denies use of Bipap overnight, on 2L nasal cannula during exam. Discussed results of LHC, TTE, and outpatient plan/recommendations. Objective Vital Signs, Last 4 Hours Temp Pulse Resp BP Pulse Ox 11/14/16 07:40 77 11/14/16 07:38 97.8 F 75 16 158/91 94 L General: Conversant HEENT: Atraumatic, Normocephaly Cardiac: Reg Rate and Rhythm, Normal S1 and S2 Lungs: Other (Wheezes throughout) Neuro: Alert and responsive Abdomen: Soft Skin: No rashes noted on visualized skin Musculoskeletal: No Chest Wall Tenderness Extremities: No Edema, Normal Pulses Other: Right groin: mild ecchymosis at site, soft, no hematoma. +2 PT/DP pulses BLE. Results 11/14/16 06:15 11/14/16 06:15 Lab Results 11/13/16 11/14/16 11/14/16 10:00 06:15 06:15 WBC 11.0 Hgb 12.4 Hct 37.3 Plt Count 211 APTT 32.8 D Sodium 136 Potassium 4.0 Chloride 100 Carbon Dioxide 26 BUN 29 H Creatinine 0.96 Glucose 138 H Calcium 9.0 Active Medications Acetaminophen (Tylenol) 650 mg PO Q6HR PRN PRN Reason: Mild Pain (1-3) Stop: 05/13/17 10:34 Acetaminophen/Hydrocodone Bitart ([place] 5-325 Mg) 1 tab PO Q4HR PRN PRN Reason: Moderate Pain Stop: 05/15/17 15:25 Albuterol/Ipratropium (Duoneb) 3 ml IH F6VGTTT [facility] PRN Reason: Protocol Stop: 05/13/17 12:01 Last Admin: 11/14/16 07:59 Dose: 3 ml Amlodipine Besylate (Norvasc) 5 mg PO DAILY [facility] PRN Reason: Protocol Stop: 05/14/17 10:16 Last Admin: 11/14/16 07:32 Dose: 5 mg Aspirin (Aspirin Ec) 81 mg PO DAILY [facility] Stop: 05/13/17 09:01 Last Admin: 11/14/16 07:32 Dose: 81 mg Atorvastatin Calcium (Lipitor) 40 mg PO HS [facility] Stop: 05/13/17 21:01 Last Admin: 11/13/16 20:55 Dose: 40 mg Budesonide/Formoterol Fumarate (Symbicort) 2 puff IH BIDR [facility] Stop: 05/13/17 10:01 Last Admin: 11/14/16 07:59 Dose: 2 puff Clonidine HCl (Clonidine Hcl) 0.1 mg PO Q12H PRN PRN Reason: Hypertension Last Admin: 11/13/16 16:16 Dose: 0.1 mg Clopidogrel Bisulfate (Plavix) 75 mg PO DAILY [facility] Stop: 05/16/17 09:01 Last Admin: 11/14/16 07:32 Dose: 75 mg Doxazosin Mesylate (Cardura) 4 mg PO HS [facility] Stop: 05/13/17 21:01 Last Admin: 11/13/16 20:55 Dose: 4 mg Furosemide (Lasix) 40 mg PO DAILY [facility] Stop: 05/17/17 09:01 Guaifenesin/Codeine Phosphate (Robitussin W/Codeine) 10 ml PO Q6HR PRN; Protocol PRN Reason: Cough Stop: 05/15/17 15:57 Last Admin: 11/13/16 16:16 Dose: 10 ml Levofloxacin/Dextrose (Levaquin 750mg/150 Ml) 750 mg in 150 mls @ 100 mls/hr IVPB Q48H [facility] PRN Reason: Protocol Stop: 05/13/17 09:01 Last Admin: 11/13/16 07:48 Dose: 100 mls/hr Losartan Potassium (Cozaar) 25 mg PO DAILY [facility] PRN Reason: Protocol Stop: 05/16/17 10:16 Methylprednisolone (Solu-Medrol) 80 mg IVP Q8HR [facility] Stop: 05/15/17 16:01 Last Admin: 11/14/16 07:31 Dose: 80 mg Metoprolol Succinate (Toprol Xl) 25 mg PO DAILY [facility] Stop: 05/16/17 09:01 Last Admin: 11/14/16 07:32 Dose: 25 mg Morphine Sulfate (Morphine Sulfate) 2 mg IVP Q4HR PRN PRN Reason: Severe Pain (7-10) Stop: 05/13/17 10:34 Naloxone HCl (Narcan) 0.4 mg IVP Q2MIN PRN PRN Reason: Opioid Reversal Stop: 05/13/17 10:34 Ondansetron HCl (Zofran) 4 mg IVP Q8HR PRN PRN Reason: Nausea And Vomiting Stop: 05/13/17 10:34 Last Admin: 11/13/16 16:16 Dose: 4 mg Potassium Chloride (Potassium Chloride) 40 meq PO DAILY [facility] Stop: 05/17/17 09:01 - Imaging and Cardiology Echo: report reviewed Cardiac cath: report reviewed Other Results: 12 hour tele: avg HR=82 SR. No significant events noted. - EKG Interpretation EKG results cardiology: personally reviewed - VTE Reasons for not Prescribing Prophylaxis: Not indicated-Anticoagulated or INR therapeutic Consult Discharge Plan - Plan Referrals: Simone Nieves MD [Primary Care Provider] - 11/21/16 9:45 am ()
--- NOTE | 2016-11-14 14:10 | Internal Med Progress Note ---
Date of Encounter: 11/14/16 Time of Encounter: 09:00 - Assessment and plan (1) Acute respiratory failure with hypoxia and hypercarbia Current Visit: Yes Status: Acute Assessment and plan: Due to COPD exacerbation. We will treat the underlying disease. BiPAP supportive treatment as needed. (2) Acute exacerbation of chronic obstructive airways disease Current Visit: Yes Status: Acute Assessment and plan: Patient has COPD exacerbation. We treated her with antibiotics, steroid, and bronchodilator. Closer monitoring (3) CHF (congestive heart failure) Current Visit: Yes Status: Chronic Assessment and plan: Patient has a combined systolic and diastolic dysfunction. EF of 20-25%. Will continue diuretics. Patient was placed on metoprolol and ARB. Patient has cough when placed on MIMA inhibitor. Qualifiers: Congestive heart failure type: combined Congestive heart failure chronicity : chronic Qualified Code(s): I50.42 - Chronic combined systolic (congestive) and diastolic (congestive) heart failure (4) Elevated troponin Current Visit: Yes Status: Acute Assessment and plan: Consider NSTEMI, cardiology consult on case, had catheterization and a stent placed. (5) Non-ST elevation myocardial infarction (NSTEMI), initial care episode Current Visit: Yes Status: Acute Assessment and plan: As above (6) Tobacco abuse Current Visit: Yes Status: Acute Assessment and plan: On nicotine patch (7) DVT prophylaxis Current Visit: Yes Status: Acute Assessment and plan: Heparin subcutaneously - Time Spent With Patient 25 - 35 minutes - Subjective Interval history: Patient is a 60-year-old female admitted for shortness of breath, consider COPD exacerbation. Her past medical history is significant for COPD, hyperlipidemia , hypertension, tobacco abuse. I saw and examined the patient today. She is awake alert, oriented 3. Still in mild acute respiratory distress but much less than yesterday. Oxygen saturation 97% on 2 L oxygen nasal cannula. Denies chest pain, nausea, or vomiting. Patient had catheterization and stenting yesterday, with single stent placed. Heparin drip has been discontinued after stenting, will continue aspirin, Plavix, beta kristian, and statin. ARB also placed per cardiology. Will continue antibiotic, steroid, and bronchodilator for COPD exacerbation. Continue close monitoring - Constitutional Vitals: Temp Pulse Resp BP Pulse Ox 97.8 F 80 16 157/87 94 L 11/14/16 10:00 11/14/16 12:30 11/14/16 11:15 02/16/17 12:30 11/14/16 11:15 General appearance: Present: A&O X 3, severe distress - Head Head exam: Present: atraumatic, normocephalic - Eye Eye exam: Present: PERRL, conjuntiva pink, sclera anicteric Pupils: Present: PERRL - Neck Neck exam general surgery: Present: supple, trachea midline. Absent: lymphadenopathy - Respiratory Respiratory exam: Present: CTAB, wheezes (Scattered wheezes bilaterally). Absent: accessory muscle use, rales, rhonchi - Cardiovascular Cardiovascular exam: Present: RRR, +S1, +S2. Absent: diastolic murmur, gallop, rubs, systolic murmur - GI/Abdominal GI/Abdominal exam: Present: normal bowel sounds, soft, no peritoneal signs. Absent: distended, tenderness - Extremities Exam Extremities exam: Present: warm, radial pulses palpable and symetrical. Absent : calf tenderness, cyanotic, pedal edema - Neurological Exam Neurological exam: Present: CN II-XII intact, oriented X3, no focal deficits. Absent: pronater drift, facial droop, speech deficit - Skin Skin exam: Present: dry, intact Internal Medicine: Result - Labs CBC & Chem 7: 11/14/16 06:15 11/14/16 06:15 Labs: Short CBC 11/14/16 Range/Units 06:15 WBC 11.0 (4.3-11.1) K/mcL Hgb 12.4 (11.5-15.4) g/dL Hct 37.3 (35.3-44.9) % Plt Count 211 (140-400) K/mcL Neutrophils # 9.9 H (1.6-8.9) K/mcL BMP 11/14/16 06:15 Sodium 136 Potassium 4.0 Chloride 100 Carbon Dioxide 26 BUN 29 H Creatinine 0.96 Glucose 138 H Calcium 9.0 - ABG Interpretation ABG results: ABG ABG pH 7.34 pH Units (7.32-7.45) 11/11/16 08:24 ABG pCO2 49 mmHg (35-45) H 11/11/16 08:24 ABG pO2 132 mmHg (85-104) H 11/11/16 08:24 ABG O2 Saturation 99 % (95-98) H 11/11/16 08:24 PT/INR, D-dimer PT 10.1 Seconds (9.4-12.1) 11/11/16 09:08 - VTE Reasons for not Prescribing Prophylaxis: Not indicated-Anticoagulated or INR therapeutic Consult Discharge Plan - Plan Referrals: Simone Nieves MD [Primary Care Provider] - 11/21/16 9:45 am () Phillip Light MD [Partnered Physician] - 11/22/16 8:35 am
[2016-11-14] MEDS: *HR* Heparin 5,000 UNIT/ML VIAL SQ SCH (18:06)
[2016-11-14] MEDS: Ondansetron 4 MG/2 ML VIAL IVP PRN (20:34)
[2016-11-14] MEDS: cloNIDine HCl 0.1 MG TABLET PO PRN (20:43)
[2016-11-15] MEDS: methylPREDNISolone 125 MG/2 ML VIAL IVP SCH
[2016-11-15] MEDS: Ipratropium/Albuterol Neb 3 ML IH SCH ×3 (03:37→11:17)
[2016-11-15 04:22] LABS: BUN/Creatinine Ratio 32 (6-26); Blood Urea Nitrogen 27 mg/dL (7-20); Calcium 9.2 mg/dL (8.6-10.8); Carbon Dioxide 28 mEq/L (19-29); Chloride 102 mEq/L (98-109); Glucose 148 mg/dL (70-99); Osmolality,Calculated 296 (280-300); Potassium 4.5 mEq/L (3.5-4.5); Sodium 139 mEq/L (136-145); eGFR For African Americans > 60 (> 60); eGFR For Non-African Americans > 60 (> 60)
[2016-11-15 04:31] LABS: Basophils % 0.2 %; Hematocrit 40.1 % (35.3-44.9); Hemoglobin 13.1 g/dL (11.5-15.4); Immature Granulocytes % 1.1 % (0-4); Lymphocytes # 0.7 K/mcL (0.6-4.6); Lymphocytes % 7.2 %; Mean Corpuscular HGB Conc 32.7 g/dL (31.6-35.5); Mean Corpuscular Hemoglobin 30.2 pg (28.0-33.3); Mean Corpuscular Volume 92.4 fL (83.0-100.0); Mean Platelet Volume 10.1 fL (9.4-12.4); Monocytes # 0.3 K/mcL (0.0-1.3); Monocytes % 2.8 %; Neutrophils # 8.1 K/mcL (1.6-8.9); Platelet Count 198 K/mcL (140-400); Red Blood Count 4.34 M/mcL (3.82-4.97); Red Cell Distribution Width 12.7 % (11.5-14.5); Segmented Neutrophils % 88.7 %
[2016-11-15] MEDS: *HR* Heparin 5,000 UNIT/ML VIAL SQ SCH (06:23)
[2016-11-15 07:13] VITALS: BP 137/78
[2016-11-15] MEDS: Budesonide/Formoterol 160/4.5 MDI IH SCH (07:27)
[2016-11-15] MEDS: Metoprolol XL (24 HR) Succ 25 MG TAB.ER.24H PO SCH (07:48)
[2016-11-15] MEDS: Aspirin Enteric Coated 81 MG Tablet PO SCH (07:48)
[2016-11-15] MEDS: amLODIPine 5 MG TABLET PO SCH (07:48)
[2016-11-15] MEDS: Levofloxacin 750 MG/150 ML 750 MG/150 ML BAG IVPB SCH (07:48)
[2016-11-15] MEDS ORDERED: Furosemide 40 MG TABLET PO SCH (09:00)
[2016-11-15] MEDS ORDERED: Famotidine 20 MG TABLET PO SCH (10:15)
--- NOTE | 2016-11-15 13:32 | Discharge Summary ---
Date of Encounter: 11/15/16 Time of Encounter: 13:00 - Discharge Diagnosis (1) Acute respiratory failure with hypoxia and hypercarbia Priority: Primary Status: Acute (2) Acute exacerbation of chronic obstructive airways disease Priority: Primary Status: Acute (3) CHF (congestive heart failure) Priority: Primary Status: Chronic Qualifiers: Congestive heart failure type: combined Congestive heart failure chronicity : chronic Qualified Code(s): I50.42 - Chronic combined systolic (congestive) and diastolic (congestive) heart failure (4) Elevated troponin Priority: Primary Status: Acute (5) Non-ST elevation myocardial infarction (NSTEMI), initial care episode Priority: Primary Status: Acute (6) Tobacco abuse Priority: Primary Status: Acute (7) DVT prophylaxis Priority: Secondary Status: Acute - Discharge Medications Prescriptions: GuaiFENesin/Dextromethorphan [Robitussin/Dm] 10 ml PO Q6HR PRN 7 Days PRN Reason: Cough Amlodipine [Norvasc] 5 mg PO DAILY #30 tablet Atorvastatin [Lipitor] 40 mg PO HS #30 tablet Clopidogrel [Plavix] 75 mg PO DAILY #30 tablet Famotidine [Pepcid] 20 mg PO BID #30 tablet Levofloxacin [Levaquin] 500 mg PO DAILY #3 tablet Losartan [Cozaar] 25 mg PO DAILY #30 tablet Metoprolol XL (24 HR) Succ [Toprol Xl] 25 mg PO DAILY #30 tab.er.24h PredniSONE 40 mg PO BIDWM #30 tablet Home Medications: Acetaminophen [Tylenol] 1,000 mg PO Q6HR PRN #90 tablet 10/23/16 [Rx] Acetylcysteine [Nac] 500 mg PO DAILY 10/23/16 [History] Albuterol Sulfate [Albuterol Inhaler] 2 puff IH Q4H PRN 10/23/16 [History] Aspirin [Lo-Dose Aspirin EC] 81 mg PO DAILY 10/23/16 [History] Cholecalciferol (Vitamin D3) [Vitamin D3] 1,000 unit PO DAILY 10/23/16 [History] Citalopram Hydrobromide [Celexa] 20 mg PO DAILY 10/23/16 [History] CloNIDine HCl [Kapvay] 0.1 mg PO Q12H PRN 10/23/16 [History] Doxazosin [Cardura] 4 mg PO HS 10/23/16 [History] Fluticasone/Salmeterol [Advair 250-50 Diskus] 1 puff IH DAILY 10/23/16 [History] Hydrochlorothiazide 25 mg PO DAILY 10/23/16 [History] Ipratropium/Albuterol Neb [Duoneb] 3 ml IH Q4HR PRN 10/23/16 [History] Potassium Chloride [Klor-Con Sprinkle] 10 meq PO DAILY 10/23/16 [History] Amlodipine [Norvasc] 5 mg PO DAILY #30 tablet 11/15/16 [Rx] Atorvastatin [Lipitor] 40 mg PO HS #30 tablet 11/15/16 [Rx] Clopidogrel [Plavix] 75 mg PO DAILY #30 tablet 11/15/16 [Rx] Famotidine [Pepcid] 20 mg PO BID #30 tablet 11/15/16 [Rx] GuaiFENesin/Dextromethorphan [Robitussin/Dm] 10 ml PO Q6HR PRN 7 Days 11/15/16 [ Rx] Levofloxacin [Levaquin] 500 mg PO DAILY #3 tablet 11/15/16 [Rx] Losartan [Cozaar] 25 mg PO DAILY #30 tablet 11/15/16 [Rx] Metoprolol XL (24 HR) Succ [Toprol Xl] 25 mg PO DAILY #30 tab.er.24h 11/15/16 [ Rx] PredniSONE 40 mg PO BIDWM #30 tablet 11/15/16 [Rx] Allergies/Adverse Reactions: Allergies sulfamethoxazole [From Bactrim] Adverse Reaction (Verified 11/11/16 12:24) Nausea trimethoprim [From Bactrim] Adverse Reaction (Verified 11/11/16 12:24) Nausea Procedures/tests Complete & Pending: Procedures Performed prior 72 hours Category Date Time Status CL Cardiac Catheterization [CL] Routine Rn Charge 11/13/16 10:59 Completed - Notes to Outpatient Provider 1. Patient had catheterization done, please continue aspirin and Plavix for at least 1 year. 2. Hypertension medication has been changed: Add amlodipine 5 mg by mouth daily , add metoprolol XL 25mg po qd, add losartan 25 mg po ad. Discontinue Labetalol 200mg po bid. Keep HCTZ 25mg qd and doxazosin 4mg po qhs. 3. Prednisone tapering down to stop as prescribed. Date of admission: 11/11/16 10:33 Primary care physician: Simone Nieves MD Consults: 11/11/16 10:37 Consult to Cardiology [CONS] Routine Comment: Consulting Provider: Craig Sharma Reason for Consult: ACS Time Notified: 09:00 Call Completed: Yes 11/11/16 12:55 Consult to Cardiac Rehabilitation-Phase1 [CONS] Routine Comment: Reason for Consult: NSTEMI Call Completed: No 11/11/16 15:01 Consult to Invasive Line Access Team [CONS] Routine Reason for Consult: limited access Line Type: EPIV 11/13/16 15:24 Consult to Cardiac Rehabilitation-Phase1 [CONS] Routine Comment: Reason for Consult: post op cath Call Completed: Yes Discharging clinician: Karl Quezada Anticipated date of discharge: 11/15/16 - Patient Status Disposition: Home, Self-Care Condition: Fair Functional capacity at discharge: independent ambulation Overall status at discharge: patient is progressing back to baseline - Discharge Instructions Follow Up With: Simone Nieves MD [Primary Care Provider] - 11/21/16 9:45 am () Phililp Light MD [Partnered Physician] - 11/22/16 8:35 am - Diet and Activity Activity: increase activity as tolerated Diet: low fat, low cholesterol, low salt diet Interval History: Ms. Crawford is a 60 year old female with past medical history significant for COPD who was brought by ambulance for evaluation of respiratory distress. The history is limited by severe shortness of breath currently the patient is on BiPAP. She relates that for the last 3 days she had worsening shortness of breath not associated with chest pain. She reports associated cough productive of yellow sputum and subjective fevers. The course has been progressively worsening in her shortness of breath but not significantly improved with use of nebulized albuterol. Upon initial evaluation in the emergency department she was found to be in respiratory distress and she was placed on BiPAP. She was given inhaled bronchodilators and Solu-Medrol. Hospital course: Ms. Crawford is a 60 year old female admitted for shortness of breath. She has history of COPD and was treated with COPD exacerbation with antibiotics, steroids, and bronchodilator. Her troponin is high and she was also considered NSTEMI. Cardiology consult was called, and patient was placed on heparin drip. Echo shows EF of 20-25%. Patient had a cardiac catheterization and stenting, after stenting EF is 50% by catheterization evaluation. Patient was continuously treated with antibiotics and steroid, and bronchodilator. After treatment her condition has improved, she is not in acute respiratory distress. Patient feels that she get back to her baseline now. Patient has home oxygen already. She was discharged home and to follow-up with PCP and cardiology as outpatient. Patient was seen and examined, she is awake alert, oriented 3, in no acute respiratory distress. Still having mild cough. Vital signs stable, oxygen saturation is 93% in room air. Patient can walk around in room. Patient with discharge home with the by mouth antibiotics and tapering down steroids. She will also prescribed Famotidine to prevent steroid caused GI symptoms. Patient will follow up with PCP and cardiology. Time spent discussing smoking cessation with patient: 3 to 10 minutes - Time Spent with Patient Total time spent providing and/or coordinating discharge services: 40 minutes Greater than 30 minutes - Constitutional Vitals: Temp Pulse Resp BP Pulse Ox 97.5 F L 68 18 137/78 100 11/15/16 11:25 11/15/16 11:25 11/15/16 11:25 11/15/16 11:25 11/15/16 11:25 General appearance: Present: A&O X 3, severe distress - Head Head exam: Present: atraumatic, normocephalic - Eye Eye exam: Present: PERRL, conjuntiva pink, sclera anicteric Pupils: Present: PERRL - Neck Neck exam general surgery: Present: supple, trachea midline. Absent: lymphadenopathy - Respiratory Respiratory exam: Present: CTAB, wheezes (Few wheezes on bilateral lung.). Absent: accessory muscle use, rales, rhonchi - Cardiovascular Cardiovascular exam: Present: RRR, +S1, +S2. Absent: diastolic murmur, gallop, rubs, systolic murmur - GI/Abdominal GI/Abdominal exam: Present: normal bowel sounds, soft, no peritoneal signs. Absent: distended, tenderness - Extremities Exam Extremities exam: Present: warm, radial pulses palpable and symetrical. Absent : calf tenderness, cyanotic, pedal edema - Neurological Exam Neurological exam: Present: CN II-XII intact, oriented X3, no focal deficits. Absent: pronater drift, facial droop, speech deficit - Skin Skin exam: Present: dry, intact - VTE Reasons for not Prescribing Prophylaxis: Not indicated-Anticoagulated or INR therapeutic
[2016-11-15] MEDS ORDERED: predniSONE 20 MG TABLET PO SCH (17:00)
[2016-11-15] MEDS ORDERED: methylPREDNISolone 125 MG/2 ML VIAL IVP SCH (18:00)
[2016-11-16] MEDS ORDERED: levoFLOXacin 500 MG TABLET PO SCH (09:00)
--- NOTE | 2016-12-10 15:33 | Electrocardiograph Report ---
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
== END 2016-11-15 14:55 | disposition home or self-care (01) | DRG 174 ==
LOC: 2ANU 04:54 → EMEROO 04:54 → 2ANU 09:57 → SUATTDRO 10:33 → 2NNU 13:43
PROVIDERS: ADMIT Internal Medicine; ATTEND Internal Medicine

== ENCOUNTER 2017-01-02 06:08 | Inpatient (IN) ==
[2017-01-02] MEDS ORDERED: CeFAZolin Pre 2,000 MG/100 ML 2,000 MG/100 ML BAG IVPB ONE (06:24)
[2017-01-02] MEDS ORDERED: Vancomycin 1,000 MG in D5% in Water 250 ML IVPB ONE ×3 (06:24→18:30)
[2017-01-02] MEDS ORDERED: Albuterol 2.5 MG/3 ML NEBULIZER IH ONE (06:24)
[2017-01-02] MEDS ORDERED: Lidocaine -MPF 1% 2 ML VIAL ID ONE (06:24)
[2017-01-02] MEDS ORDERED: Ringers Solution, Lactated 1,000 ML IVC SCH (06:30)
[2017-01-02] MEDS ORDERED: Heparin 1,000 UNITS/500 mL NS 0 ML ONE (06:46)
[2017-01-02] MEDS ORDERED: Lidocaine -MPF 2% 2 ML VIAL ONE (06:46)
[2017-01-02] MEDS ORDERED: *HR* Rocuronium Bromide 50 MG/5 ML VIAL ONE ×2 (06:46→09:56)
[2017-01-02] MEDS ORDERED: *HR* Heparin 5,000 UNIT/ML VIAL ONE (06:47)
[2017-01-02] MEDS ORDERED: *HR* Phenylephrine 10 MG/ML VIAL ONE (06:47)
[2017-01-02] MEDS ORDERED: *HR* FentaNYL (PF) 100 MCG/2 ML VIAL ONE (06:50)
[2017-01-02] MEDS ORDERED: *HR* Midazolam HCl 2 MG/2 ML VIAL ONE ×2 (06:50→07:46)
[2017-01-02] MEDS ORDERED: *HR* Propofol 200 MG/20 ML VIAL IVP ONE (06:50)
--- NOTE | 2017-01-02 07:09 | Anesthesia Evaluation PreOp ---
Date of Encounter: 01/02/17 Time of Encounter: 07:06 - Past History Planned Operation: left fem-pop BPG Cardiac History: [place], HTN, Hyperlipidemia, Cardiac Stent ([place] with FAREED stent placement 11/15. heart cath showed EF 50%, echo showed EF 25% with severe global LV dysfunction), Other (hx PAD with right renal artery stent, AAA stent. Has incapacitating claudication and is the indication for doing this surgery despite recent FAREED) Pulmonary History: Smoker, Pack/yr (1/2 to 1 ppd for 40 years+), COPD (not O2 dependent, does use inhaler regularly. Had cigarette this morning) MOTORMAN/WOMAN History: Denies Any Significant HX Other Medical History: GERD, Other (hx diverticulitis) Anesthesia History: No Prior Anesthetic Complications, Past Anesthesia ( colectomy and reversal, appendectomy, AAA stent, tonsillectomy) : No Alcohol Use: none, unknown, occasionally, heavy (drinks regularly and moderately heavy) Drug use: none Medications and Allergies Acetaminophen [Tylenol] 1,000 mg PO Q6HR PRN #90 tablet 10/23/16 [Rx] Acetylcysteine [Nac] 500 mg PO DAILY 10/23/16 [History] Albuterol Sulfate [Albuterol Inhaler] 2 puff IH Q4H PRN 10/23/16 [History] Aspirin [Lo-Dose Aspirin EC] 81 mg PO DAILY 10/23/16 [History] Cholecalciferol (Vitamin D3) [Vitamin D3] 1,000 unit PO DAILY 10/23/16 [History] Citalopram Hydrobromide [Celexa] 20 mg PO DAILY 10/23/16 [History] CloNIDine HCl [Kapvay] 0.1 mg PO Q12H PRN 10/23/16 [History] Doxazosin [Cardura] 4 mg PO HS 10/23/16 [History] Fluticasone/Salmeterol [Advair 250-50 Diskus] 1 puff IH DAILY 10/23/16 [History] Hydrochlorothiazide 25 mg PO DAILY 10/23/16 [History] Ipratropium/Albuterol Neb [Duoneb] 3 ml IH Q4HR PRN 10/23/16 [History] Potassium Chloride [Klor-Con Sprinkle] 10 meq PO DAILY 10/23/16 [History] Amlodipine [Norvasc] 5 mg PO DAILY #30 tablet 11/15/16 [Rx] Atorvastatin [Lipitor] 40 mg PO HS #30 tablet 11/15/16 [Rx] Clopidogrel [Plavix] 75 mg PO DAILY #30 tablet 11/15/16 [Rx] Famotidine [Pepcid] 20 mg PO BID #30 tablet 11/15/16 [Rx] GuaiFENesin/Dextromethorphan [Robitussin/Dm] 10 ml PO Q6HR PRN 7 Days 11/15/16 [ Rx] Levofloxacin [Levaquin] 500 mg PO DAILY #3 tablet 11/15/16 [Rx] Losartan [Cozaar] 25 mg PO DAILY #30 tablet 11/15/16 [Rx] Metoprolol XL (24 HR) Succ [Toprol Xl] 25 mg PO DAILY #30 tab.er.24h 11/15/16 [ Rx] PredniSONE 40 mg PO BIDWM #30 tablet 11/15/16 [Rx] Allergies sulfamethoxazole [From Bactrim] Adverse Reaction (Verified 11/11/16 12:24) Nausea trimethoprim [From Bactrim] Adverse Reaction (Verified 11/11/16 12:24) Nausea - Meds/Allergy Pre-op Review Medications Reviewed: Yes Allergies Reviewed: Yes Beta Blockers on Current Med List: Yes If Beta Blockers taken, Date/Time (Last Dose taken): this morning at -0515 Anesthesia Results - Labs Laboratory Tests 12/30/16 12/30/16 12:39 12:39 Hgb 14.8 Hct 45.0 H Plt Count 268 Sodium 137 Potassium 3.6 BUN 17 Creatinine 0.91 - Imaging EKG: report reviewed Anesthesia Exam Selected Entries 01/02/17 06:33 Temperature 97.8 F Pulse Rate 78 Respiratory Rate 18 Blood Pressure 165/89 O2 Sat by Pulse Oximetry 94 Height: 63in Weight: 134lbs NPO (# of Hours): >8hrs Pain Scale: 0 Pain Scale Used: Numeric (1 - 10) - HEENT Pupil (Motor): EOMI Mallampati: III Teeth: Poor dentition Oral Opening: Greater than 3 - MOTORMAN/WOMAN LOC: Oriented MOTORMAN/WOMAN Motor: Normal RUE, Normal LUE, Normal RLE, Normal LLE, Normal Face MOTORMAN/WOMAN Sensory: Normal: RUE, LUE, RLE, LLE, Face - Cardiac Rhythm: Regular Murmur: None - Pulmonary Breath Sounds: bilateral Clear (very distant) Respiratory Effort: Symmetrical Anesthesia Assess/Plan ASA Score: 3 (smoker, CAD, PAD, COPD) Modified Saroj Scale for Level of Consciousness: Cooperative, oriented, and tranquil Anesthetic Plan: General Autologous Blood: Yes Monitoring Plan: Standard Monitors, A-Line Recovery Plan: ICU (Discussed her high risk due to recent [place], stent, continued smoking and PAD/CAD. She will get an a-line. Advised there is a possible need for blood productws and she agrees to recieving if needed. Advised is a risk that she will not be extubated immediatelly after OR and may require prolonged intubation. Questions answered and agrees to proceed.)
[2017-01-02] MEDS ORDERED: Vancomycin 1,000 MG VIAL ONE (07:11)
[2017-01-02] MEDS ORDERED: Heparin 1,000 UNITS/500 mL NS 1,000 ML ONE (07:11)
--- NOTE | 2017-01-02 07:31 | History & Physical Report ---
Date of Encounter: 01/02/17 Time of Encounter: 07:28 24 Hour HP Update - Instructions Instructions: If the History and Physical is less than 30 days old and was completed prior to A.M. admission and or procedure and has NOT been updated on calendar day of procedure please complete this update prior to performing procedure. - Update Patient reports changes in Medical Condition: No Changes in examination, assessment, or condition: No Changes in Medication: No Preop tests/diagnostics Reviewed: Yes Surgery Remains Indicated: Yes Consent for Planned Operative Procedure(s) Verified: Yes - Pre-Operative Checklist Preoperative Checklist Indicated: Yes Prophylactic Antibiotic Ordered: Yes (vancomycin due to mrsa risk) Home Medications Include Beta Blade: Yes Beta Blade Taken Today (Day of Surgery): Yes Beta Blade Taken Yesterday (Day Prior to Surgery): Yes Is VTE Prophylaxis Indicated?: Yes
--- NOTE | 2017-01-02 08:22 | Anesthesia Procedures ---
Date of Encounter: 01/02/17 Time of Encounter: 07:50 Procedures: Anesthesia - Arterial Line Consent obtained: written consent Time out performed: Yes Sedation: Versed (mg): 4 Supplemental Oxygen via Nasal Cannula (L/min): 2 Size (Gauge): 20 Length (inches): 1 3/4 Technique Used: sterile prep, guide wire technique, direct puncture technique Post-Procedure: line taped into place Patient tolerated procedure: well, no complications Complications: none (attempt x 2) Site: Radial L
[2017-01-02] MEDS ORDERED: Dexamethasone 4 MG/ML VIAL ONE (09:41)
[2017-01-02] MEDS ORDERED: Ondansetron 4 MG/2 ML VIAL ONE (09:41)
[2017-01-02] MEDS ORDERED: Neostigmine Methylsulfate 3 MG/3 ML SYRINGE ONE (10:35)
--- NOTE | 2017-01-02 11:01 | Operative Note ---
Date of procedure: 01/02/17 Pre-op diagnosis: Peripheral vascular disease with disabling claudication Post-op diagnosis: same Procedure: 1. Left common femoral to popliteal artery bypass with 6mm Distaflo minicuff PTFE graft. 2. Left common and deep femoral artery endarterectomy. Complications: None Anesthesia: GETA Surgeon: Varun Olson Estimated blood loss (cc): 300 Specimen: None Condition: stable Disposition: PACU Procedure in Detail: Indications: The patient is a 61 year old female who was found to have peripheral vascular disease with disabling claudication. She was found to have a left superficial femoral artery occlusion. Procedure: An oblique incision was made over her left groin sharply. Hemostasis was obtained with electrocautery. Through a process of blunt, sharp , and electrocautery dissection, the left femoral vessels were dissected circumferentially and surrounded with vessel loops. An incision was made on the left medial thigh sharply. Hemostasis was obtained with electrocautery. Through a process of blunt, sharp, and electrocautery dissection, the left above -knee popliteal artery was dissected proximally and distally and surrounded with vessel loops. A graft was tunneled between the popliteal and femoral incisions. The patient received 5000 units of heparin intravenously. Additional heparin was given throughout the case to maintain adequate anticoagulation. The popliteal vessels were occluded and a longitudinal arteriotomy was made in the popliteal artery. The distal end of the graft was sutured in place with a running 6-0 Prolene, but not tied. Heparinized saline was infused into the lumen. Tension was next applied to the femoral vessel loops. An arteriotomy was made in the common femoral artery. Calcified and stenosic plaque was noted to be present in the distal common femoral artery. The plaque occluded the superficial femoral artery lumen and resulted in significnat luminal and retrograde flow reduction through the deep femoral artery. Using a dental freer, an endarterectomy was performed on the common and deep femoral artery plaque. The plaque was excised and no distal elevated flap was noted. Upon removal of the clamp, strong retrograde flow as noted through the deep femoral artery upon release of the vessel loop. Tension was applied to the loop and the vessel lumen was irrigated with heparinized saline. The proximal graft was cut to fit the defect. The graft was anastamosed with a running 6-0 Prolene. The vessels were flushed through the graft and heparin was infused into the lumen. The graft was clamped with an atraumatic clamp. Thrombin and gelfoam were used at the proximal anastamosis. The distal arterial anastomosis suture line was completed. Prior to completing the closure , the popliteal vessels were flushed and reoccluded. Heparinized saline was infused into the lumen. The anastamosis was tied and then flow was restored. Polyphasic signals were noted distal to the distal anastomosis as well as at the posterior tibial artery. Wounds were irrigated with antibiotic-containing saline. Thrombin and gelfoam were used to aid in hemostasis. Platelet rich and platelet poor plasma were infused into the wounds. Meticulous hemostasis was obtained throughout the wound with electrocautery. Wounds were reapproximated with layers of 2-0 and 3-0 Vicryl. Skin was reapproximated with 3-0 Monocryl. A sterile dressing was applied. The patient was extubated and taken to recovery room in stable condition.
[2017-01-02] MEDS ORDERED: Ondansetron 4 MG/2 ML VIAL IVP ONE (11:03)
[2017-01-02] MEDS ORDERED: Ketorolac 15 MG/ML VIAL IVP ONE (11:03)
[2017-01-02] MEDS ORDERED: *HR* OxyCODONE/APAP 5/325 TABLET PO PRN (11:03)
[2017-01-02] MEDS ORDERED: *HR* Meperidine 25 MG/ML SYRINGE IVP PRN (11:03)
[2017-01-02] MEDS ORDERED: Ringers Solution, Lactated 1,000 ML IVC ONE (11:03)
--- NOTE | 2017-01-02 11:43 | Anesthesia Evaluation Post Op ---
Date of Encounter: 01/02/17 Time of Encounter: 11:43 - Vital Signs Vital Signs: Vital Signs/O2 Sat/Glucose, Most Current Temp Pulse Resp BP Pulse Ox 01/02/17 11:35 61 14 101/59 100 01/02/17 11:25 97.2 F L 62 16 114/61 99 01/02/17 11:15 65 14 96/59 96 01/02/17 11:05 73 16 92/56 93 01/02/17 11:00 85 16 80/63 94 01/02/17 10:55 98.4 F 82 16 97/68 96 - Lungs Lungs: Clear Ascult./Percussion - Airway Airway: Non-obstructed - Cardiovascular Regular Rate - Mental Status Mental Status: Asleep with brisk response to light stimulation - Pain Pain Scale: 2 - Nausea Vomiting Nausea Vomiting: Not Present - Hydration Hydration: Ice chips - Discharge PostOp Status: Transfer Patient to floor
[2017-01-02] MEDS ORDERED: Ipratropium/Albuterol Neb 3 ML IH PRN (11:59)
[2017-01-02] MEDS ORDERED: cloNIDine HCl 0.1 MG TABLET PO PRN (11:59)
[2017-01-02] MEDS: Budesonide/Formoterol 80/4.5 MDI IH SCH ×2 (11:59→20:36)
[2017-01-02] MEDS ORDERED: Acetaminophen 325 MG TABLET PO PRN (11:59)
[2017-01-02] MEDS ORDERED: *HR* Labetalol 20 MG/4 ML SYRINGE IVP PRN (11:59)
[2017-01-02] MEDS ORDERED: *HR* Morphine 2 MG/ML SYRINGE IVP PRN (11:59)
[2017-01-02] MEDS ORDERED: Naloxone 0.4 MG/ML INJ IVP PRN (11:59)
[2017-01-02] MEDS: *HR* Metoprolol 5 MG/5 ML VIAL IVP SCH ×2 (12:40→17:20)
[2017-01-02] MEDS: 0.9 % Sodium Chloride 1,000 ML IVC SCH ×2 (12:51→22:19)
[2017-01-02] MEDS: *HR* HYDROcodone/Acet 5/325 mg TABLET PO PRN (13:24)
[2017-01-02] MEDS: ceFAZolin 2,000 MG in D5% in Water 100 ML IVPB SCH ×2 (15:01→22:18)
[2017-01-02] MEDS: *HR* OxyCODONE Immed Rel 5 MG TABLET PO PRN ×2 (16:05→22:17)
[2017-01-02] MEDS ORDERED: 0.9 % Sodium Chloride 500 ML IVC ONE (16:12)
[2017-01-02] MEDS: Nicotine 2 MG GUM PO SCH (18:11)
[2017-01-02] MEDS ORDERED: traZODone 50 MG TABLET PO SCH (21:00)
[2017-01-03] MEDS: *HR* Metoprolol 5 MG/5 ML VIAL IVP SCH ×3 (00:26→11:46)
[2017-01-03] MEDS: *HR* HYDROcodone/Acet 5/325 mg TABLET PO PRN (03:56)
[2017-01-03 05:09] LABS: Calcium 8.4 mg/dL (8.6-10.8); Potassium 4.3 mEq/L (3.5-4.5)
[2017-01-03 05:27] LABS: Basophils % 0.2 %; Eosinophils % 0.1 %; Hematocrit 25.4 % (35.3-44.9); Lymphocytes % 15.9 %; Mean Corpuscular HGB Conc 33.9 g/dL (31.6-35.5); Mean Corpuscular Hemoglobin 30.9 pg (28.0-33.3); Mean Corpuscular Volume 91.4 fL (83.0-100.0); Mean Platelet Volume 10.2 fL (9.4-12.4); Monocytes # 1.8 K/mcL (0.0-1.3); Monocytes % 14.7 %; Neutrophils # 8.4 K/mcL (1.6-8.9); Platelet Count 204 K/mcL (140-400); Red Blood Count 2.78 M/mcL (3.82-4.97); Red Cell Distribution Width 12.8 % (11.5-14.5); Segmented Neutrophils % 68.1 %
[2017-01-03 05:34] LABS: Hemoglobin 8.6 g/dL (11.5-15.4)
[2017-01-03] MEDS ORDERED: *HR* Heparin 5,000 UNIT/ML VIAL SQ SCH ×2 (06:00)
[2017-01-03] MEDS: Nicotine 2 MG GUM PO SCH (06:53)
--- NOTE | 2017-01-03 07:12 | Discharge Summary ---
Date of Encounter: 01/03/17 Time of Encounter: 07:45 - Discharge Diagnosis (1) Atherosclerosis of [place] arteries of extremities with intermittent claudication, left leg Priority: Primary Status: Chronic Comments: She is postoperative day #1 after left femoral endarterectomy and left femoral to popliteal artery bypass. She is ambulating and her pain is controlled. She has palpable pedal pulses. She will be discharged today. (2) Acute blood loss as cause of postoperative anemia Priority: Secondary Status: Acute Comments: The patient has acute and expected postoperative blood loss. She is hemodynamically stable without evidence of ongoing blood loss. (3) Essential hypertension Priority: Secondary Status: Chronic Comments: She was counseled regarding atheorsclerotic risk factor reduction. (4) CAD (coronary artery disease) Priority: Secondary Status: Chronic Qualifiers: Coronary Disease-Associated Artery/Lesion type: [place] artery [place] vs. transplanted heart: [place] heart Associated angina: without angina Qualified Code(s): I25.10 - Atherosclerotic heart disease of [place] coronary artery without angina pectoris (5) Tobacco abuse Priority: Secondary Status: Chronic Comments: She was counseled regarding smoking cessation. - Discharge Medications Prescriptions: Oxycodone HCl/Acetaminophen [Percocet 5-325 mg Tablet] 1 each PO Q6H PRN #25 tablet PRN Reason: POSTOPERATIVE PAIN Home Medications: RX: Albuterol Sulfate [Albuterol Inhaler] 2 puff IH Q4H PRN 10/23/16 [History] RX: Aspirin [Lo-Dose Aspirin EC] 81 mg PO DAILY 10/23/16 [History] RX: Cholecalciferol (Vitamin D3) [Vitamin D3] 1,000 unit PO FR 10/23/16 [History ] RX: Citalopram Hydrobromide [Celexa] 20 mg PO DAILY 10/23/16 [History] RX: CloNIDine HCl [Kapvay] 0.1 mg PO Q12H PRN 10/23/16 [History] RX: Fluticasone/Salmeterol [Advair 250-50 Diskus] 1 puff IH Q12H 10/23/16 [ History] RX: Hydrochlorothiazide 25 mg PO DAILY 10/23/16 [History] RX: Ipratropium/Albuterol Neb [Duoneb] 3 ml IH Q4HR PRN 10/23/16 [History] RX: Potassium Chloride [Klor-Con Sprinkle] 10 meq PO BID 10/23/16 [History] RX: Clopidogrel [Plavix] 75 mg PO DAILY #30 tablet 11/15/16 [Rx] RX: Losartan [Cozaar] 25 mg PO DAILY #30 tablet 11/15/16 [Rx] RX: Metoprolol XL (24 HR) Succ [Toprol Xl] 25 mg PO DAILY #30 tab.er.24h [Rx] RX: Acetylcysteine [K-Smhuic-w-Cysteine] 600 mg PO DAILY 01/02/17 [History] RX: Atorvastatin [Lipitor] 40 mg PO DAILY 01/02/17 [History] RX: Famotidine [Pepcid] 20 mg PO DAILY 01/02/17 [History] RX: Lansoprazole [Prevacid] 30 mg PO DAILY 01/02/17 [History] RX: Nicotine Polacrilex [Nicorelief] 1 piece gum PO Q12H 01/02/17 [History] RX: TraZODone 50 mg PO HS 01/02/17 [History] Oxycodone HCl/Acetaminophen [Percocet 5-325 mg Tablet] 1 each PO Q6H PRN #25 tablet 01/03/17 [Rx] Allergies/Adverse Reactions: Allergies sulfamethoxazole [From Bactrim] Allergy (Verified 01/02/17 07:23) Hives trimethoprim [From Bactrim] Allergy (Verified 01/02/17 07:23) Hives Date of admission: 01/02/17 11:54 Primary care physician: Simone Nieves MD Procedure(s) Performed: Left femoral endarterectomy and left femoral to popliteal artery bypass. Discharging clinician: Varun Olson Anticipated date of discharge: 01/03/17 - Patient Status Disposition: Home, Self-Care Condition: Good Functional capacity at discharge: independent ambulation Overall status at discharge: patient is progressing back to baseline - Discharge Instructions Instructions: Oxycodone/Acetaminophen (By mouth), Femoropopliteal Bypass (DC), Peripheral Vascular Disorders (DC) Follow Up With: Simone Nieves MD [Primary Care Provider] - 01/09/17 9:45 am () Varun Olson MD [Partnered Physician] - 02/12/17 1:50 pm Additional Instructions: May remove bandage and shower 01/04/17. Wash wound gently and pat to dry. APply dry gauze to wound daily for 7 days. No tub baths or swimming until 01/27/17. Call Dr. Olson at [phone] with questions or concerns. - Diet and Activity Activity: increase activity as tolerated Diet: low fat, low cholesterol - Hospital Course Hospital course: Ms. Crawford is a 61 year old female with a history of hypertension, hyperlipidemia , coronary artery disease and tobacco abuse. She presented with disabling left lower extremity claudication. She was admitted on 01/02/17 and taken to the OR. She underwent a femoral endarterectomy and left femoral to popliteal artery bypass. She tolerated the procedure well. On postoperative day #1, she was ambulating and her pain was controlled. She was discharged to home in stable condition without complication. - Time Spent with Patient Total time spent providing and/or coordinating discharge services: Exam Vital Signs, Last 4 Hours Temp Pulse Resp BP Pulse Ox 01/03/17 03:36 98.2 F 75 14 98/61 93 General: Present: Conversant, No Apparent Distress HEENT: Present: Pupils equal Neck: Absent: JVD Cardiac: Present: Reg Rate and Rhythm, Normal S1 and S2 Lungs: Present: Normal Breath Sounds Neuro: Present: Alert and responsive, No focal deficits noted, Motor nerves grossly intact, Sensory nerves grossly intact Abdomen: Present: Soft, Non-tender Vascular: Present: Normal capillary refill, Pulse, normal, Surgical incisions ( clean, dry and intact without hematoma). Absent: Cyanosis, Edema Skin: Present: No rashes noted on visualized skin - VTE Documentation of Mechanical Device: Intermittent pneumatic compression device
[2017-01-03] MEDS: *HR* OxyCODONE Immed Rel 5 MG TABLET PO PRN (08:19)
[2017-01-03] MEDS ORDERED: Famotidine 20 MG TABLET PO SCH (09:00)
[2017-01-03] MEDS ORDERED: Aspirin Enteric Coated 81 MG Tablet PO SCH (09:00)
[2017-01-03] MEDS ORDERED: Metoprolol XL (24 HR) Succ 25 MG TAB.ER.24H PO SCH (09:00)
[2017-01-03] MEDS ORDERED: Cholecalciferol (D-3) 1,000 UNIT TABLET PO SCH (09:00)
[2017-01-03] MEDS ORDERED: hydroCHLOROthiazide 25 MG TABLET PO SCH (09:00)
[2017-01-03] MEDS: Budesonide/Formoterol 80/4.5 MDI IH SCH (10:44)
[2017-01-03 14:00] VITALS: BP 131/67
== END 2017-01-03 15:15 | disposition home or self-care (01) | DRG 181 ==
LOC: SAMDAY 06:08 → ICNU 11:54 → 2NNU 15:48
PROVIDERS: ADMIT Surgery; ATTEND Surgery